=== PATIENT | female | born 1990 | race Caucasian/White ===

== ENCOUNTER → 2017-04-27 15:38 | Outpatient (CLI) | payer OTHER, SELFPAY ==
[2017-04-27 17:40] LABS: Color, Urine Yellow (Yellow); Glucose, Dipstick Normal (Normal); Ketone-Dipstick 5 mg/dl (Negative); Leukocyte Esterase-Dipstick 25 /ul (Negative); Nitrite-Dipstick Negative (Negative); Occult Blood-Urine Negative /ul (Negative); Protein-Dipstick Negative (Negative); Specific Gravity, Urine 1.015 (1.002-1.030); Urine Bilirubin Dipstick Negative (Negative); Urine Clarity Clear (Clear); Urine Urobilinogen Normal (Normal)
[2017-04-27 17:50] LABS: Absolute Lymphocyte Count 2.19 X10^3/ul (0.83-4.51); Absolute Neutrophil Count 7.8 X10^3/uL (2.0-7.7); Basophil# 0.04 X10^3/uL; Basophil% 0.4 % (0-1); Eosinophil# 0.09 X10^3/uL; Eosinophils% 0.8 % (0-5); Hematocrit 38.5 % (37-47); Hemoglobin 12.7 g/dl (12.0-15.0); Lymphocyte # 2.19 X10^3/ul (4.0); Lymphocyte % 20.4 % (19-41); Mean Corpuscular Hgb 29.8 pg (27.0-32.0); Mean Corpuscular Volume 90.4 fL (81-99); Mean Platelet Vol. 10.5 fl (6.2-12.0); Monocyte# 0.63 X10^3/uL; Monocyte% 5.9 % (0-10); Neutrophil # 7.75 X10^3/uL (2.7-7.7); Neutrophil % 72.3 % (47-70); Platelet Count 309 K/mm3 (150-450); RBC Distribution Width SD 45.7 fl (35.1-43.9); Red Blood Count 4.26 M/mm3 (4.2-5.4); White Blood Count 10.7 K/mm3 (4.4-11.0)
[2017-04-27 18:14] LABS: POSITIVE COUNT NO; POSITIVE DIFFERENTIAL NO; POSITIVE MORPHOLOGY NO
[2017-04-27 18:44] LABS: HIV - WCH Non-Reactive (Nonreactive); Rubella IgG 20.9 IU/mL; Vitamin D,25 Hydroxy 12.7 ng/mL (19.95-100.01)
[2017-04-27 18:51] LABS: Amphetamine Urine VISTA NEGATIVE (<1000 ng/mL); Barbiturate Urine VISTA NEGATIVE (< 200 ng/mL); Benzodiazepine Urine VISTA NEGATIVE (< 200 ng/mL); COTININE Drug Screen Negative (<200 ng/mL); Cocaine Urine VISTA NEGATIVE (< 300 ng/mL); Ecstacy Urine VISTA NEGATIVE (< 500 ng/mL); Methadone Urine VISTA NEGATIVE (< 300 ng/mL); PCP Urine VISTA NEGATIVE (< 25 ng/mL); THC Urine VISTA NEGATIVE (< 50 ng/mL); Vista UDS pH Range 6
[2017-04-27 19:29] LABS: Hemoglobin A1c 5.8 % (4.2-6.3)
[2017-04-29 08:02] LABS: HEPATITIS B SURFACE AG Negative (Negative); Hep C Antibodies <0.1 s/co ratio (0.0-0.9)
[2017-05-01 07:08] LABS: Prenatal RPR NONREACTIVE (NONREACTIVE)
== END ==
PROVIDERS: Visit Provider Obstetrics & Gynecology
DX: Z34.81 Encounter for supervision of other normal pregnancy, first trimester (principal)
CPT/HCPCS: 36415; 80307; 81002; 82306; 83036; 84443; 85025; 86703; 86762; 86803; 87340

== ENCOUNTER → 2017-06-01 10:05 | Outpatient (CLI) | payer OTHER, SELFPAY ==
[2017-06-01 11:27] LABS: Glucose Challenge Gest 1H 50g 201 mg/dL (70-140)
== END ==
PROVIDERS: Visit Provider Obstetrics & Gynecology
DX: Z34.82 Encounter for supervision of other normal pregnancy, second trimester (principal)
CPT/HCPCS: 36415; 82950

== ENCOUNTER 2017-06-22 09:35 | Outpatient (RCR) | payer OTHER, SELFPAY | END 2017-07-06 23:59 | LOC: DC 09:35 | PROVIDERS: Visit Provider Obstetrics & Gynecology | DX: O24.410 Gestational diabetes mellitus in pregnancy, diet controlled (principal); Z71.3 Dietary counseling and surveillance | CPT/HCPCS: 97802; 97803 ==

== ENCOUNTER 2017-08-19 08:28 | Outpatient (RCR) | payer OTHER, SELFPAY | END 2017-08-20 23:59 | LOC: DC 08:28 | PROVIDERS: Visit Provider Obstetrics & Gynecology | DX: O24.410 Gestational diabetes mellitus in pregnancy, diet controlled (principal); Z71.3 Dietary counseling and surveillance; Z3A.00 Weeks of gestation of pregnancy not specified ==

== ENCOUNTER → 2017-08-24 10:57 | Outpatient (CLI) | payer OTHER, SELFPAY ==
[2017-08-24 12:07] LABS: Hemoglobin 11.9 g/dl (12.0-15.0); Mean Corp Hgb Conc 32.2 g/gl (32-36); Mean Corpuscular Hgb 29.6 pg (27.0-32.0); Mean Platelet Vol. 10.1 fl (6.2-12.0); Platelet Count 254 K/mm3 (150-450); RBC Distribution Width SD 47.1 fl (35.1-43.9); Red Blood Count 4.02 M/mm3 (4.2-5.4); White Blood Count 7.5 K/mm3 (4.4-11.0)
[2017-08-24 12:10] LABS: Scan Indicated on CBC? Y/N NO
[2017-08-24 12:20] LABS: Vitamin D,25 Hydroxy 35.1 ng/mL (29.95-100.01)
== END ==
PROVIDERS: Visit Provider Obstetrics & Gynecology
DX: Z34.82 Encounter for supervision of other normal pregnancy, second trimester (principal); E55.9 Vitamin D deficiency, unspecified; O24.415 Gestational diabetes mellitus in pregnancy, controlled by oral hypoglycemic drugs; Z3A.00 Weeks of gestation of pregnancy not specified
CPT/HCPCS: 36415; 82306; 85027

== ENCOUNTER → 2017-10-26 14:28 | Outpatient (CLI) | payer OTHER, SELFPAY ==
[2017-10-26 17:56] LABS: Group B Strep DNA By PCR Negative (Negative); Internal Control PASS; Probe Check PASS; Specimen Processing Control PASS
== END ==
PROVIDERS: Visit Provider Obstetrics & Gynecology
DX: Z36.85 Encounter for antenatal screening for Streptococcus B (principal)
CPT/HCPCS: 87081; 87653

== ENCOUNTER 2017-11-04 11:10 | Inpatient (IN) | payer OTHER, SELFPAY ==
[2017-11-04 10:58] VITALS: BMI 34.2
[2017-11-04 11:06] LABS: ROM Internal Control Test YES-OK TO RESULT pt. (Internal QC)
[2017-11-04 11:07] LABS: ROM Patient Test POSITIVE (Negative)
[2017-11-04 13:20] LABS: Bedside Glucose 68 mg/dL (70-110)
[2017-11-04] MEDS: Lactated Ringers 1,000 ML 50 ML IV (13:30)
[2017-11-04 13:47] LABS: Hemoglobin 12.4 g/dl (12.0-15.0); Mean Corp Hgb Conc 32.6 g/gl (32-36); Mean Corpuscular Volume 91.8 fL (81-99); Mean Platelet Vol. 10.8 fl (6.2-12.0); Platelet Count 226 K/mm3 (150-450); RBC Distribution Width CV 14.7 % (11.6-14.6); RBC Distribution Width SD 48.4 fl (35.1-43.9); Red Blood Count 4.14 M/mm3 (4.2-5.4); White Blood Count 8.9 K/mm3 (4.4-11.0)
[2017-11-04 13:50] LABS: Scan Indicated on CBC? Y/N NO
[2017-11-04 15:11] LABS: Bedside Glucose 86 mg/dL (70-110)
[2017-11-04 16:51] LABS: Bedside Glucose 75 mg/dL (70-110)
[2017-11-04] MEDS: Oxytocin 30 units/NS 500 ml 30 UNITS/500 ML IV.SOLN 334 UNITS IV (17:13)
--- NOTE | 2017-11-04 17:33 | PCM.OB.VAG ---
- Problem List (1) Arrested active labor, delivered, current hospitalization Status: Acute Vaginal Delivery Maternal Presentation: Active Labor, Spontaneous Rupture of Membranes Presents at 37w6d EGA with SROM Uncomplicated . Amniotic Membrane Rupture Type: Spontaneous at home Rupture of Membrane time: 729 Amniotic Fluid Description: Clear Final DARCY: 11/19/17 Final DARCY Source: US <20 weeks Gestational age: 37 Weeks and 6 Days Date of Procedure: 11/04/17 Pre-Operative Diagnosis: Labor Post-Operative Diagnosis: Labor Surgery/ Procedure Performed: Spontaneous Vaginal Delivery Anesthesiologist: Issa Correa Type of Anesthesia: Epidural Description of Procedure: Admitted with SROM of clear fluid. Found to be 4 cm dilated. With irregular contraction pattern pitocin augmentation started at 1300. She progressed to fully dilated over the next 4 hours then pushed for less then 15 minutes to deliver a live female without complication. After delivery delayed cord clamping was employed. The mouth was suctioned with a bulb suction. The cord was clamped and cut. There was an active cry shortly after delivery. Apgars were 8/9. The placenta was delivered spontaneously intact with a centrally located 3VC. The uterus contracted well. The upper vagina, cervix were inspected and found to be intact. A small first degree posterior vaginal laceration was repaired with a figure of eight suture of 2-0 Vicryl. Presentation: Vertex Placental Delivery Description: Spontaneous Placenta Disposition: [facility] Percentage of Placenta Abruption: 0 Cord Vessel Description: 3 Vessels Nuchal Cord Compression: Without compression Cord Entanglement: None Estimated Blood Loss: 300cc Infant A gender: Female (1 minute): 8 (5 minute): 9 Episiotomy Description: None Laceration: Midline, Vaginal Extension/lac, 1st degree Medications given after delivery: IV Pitocin Complications: None
[2017-11-04] MEDS: Oxytocin 30 units/NS 500 ml 30 UNITS/500 ML IV.SOLN 167 UNITS IV (17:40)
--- NOTE | 2017-11-04 17:40 | PCM.DCVAG ---
Discharge Diet: No Restrictions Discharge Activity: Return to Normal Activity, May Drive, May Shower Return to work on:: 01/04/18 May shower in (days): 0 May resume sexual activity in: 4-6 weeks Call your doctor if your incision/area has: Sudden Increased Bleeding, Increased Pain/ Swelling, Increased Redness, Foul Smelling Discharge Call your doctor if you observe: Fever of 101 or Higher, Inability to urinate, Inability to have a bowel movement, Using more than one pad per hour, Shortness of breath, Chest pain, Calf discomfort, Uncontrolled pain Cleanse incision/area with: Soap & Water Additional Instructions: If you experience any of the following, contact your healthcare provider. Bleeding that soaks a pad every hour for 2 hours Fever 100.4 or higher Unrelieved incision or abdominal pain Swelling, redness, discharge or bleeding from your incision or episiotomy site Your incision begins to separate Problems urinating (including inability to urinate or burning while urinating). Visual changes Severe headache Flu-like symptoms Pain or redness in one of both of your breasts Pain, warmth, tenderness or swelling in your legs, especially the calf area Frequent nausea and vomiting Symptoms of depression or anxiety If you experience any of the following, call 911 or go to the nearest Emergency Room. Chest pain Problems breathing Seizure activity Partial or complete paralysis of a body part, slurred speech, weakness or drooping of the face, or a sudden inability to walk or hold your balance Allergies/Adverse Reactions: Allergies No Known Allergies Allergy (Verified 12/15/15 22:37) Medications to take at Discharge Vits [Prenatabs FA ] 1 tablet PO DAILY 12/15/15 Glyburide 5 mg PO QHS 11/04/17 Ibuprofen 600 mg PO Q6H PRN PRN #30 tab 11/04/17 Vitamin D 2,000 units PO DAILY 11/04/17 The following prescriptions were given: Ibuprofen 600 mg PO Q6H PRN PRN #30 tab PRN Reason: pain or cramping Please Follow Up With: Carina Oates MD When: 6 weeks Primary Care Physician: Care Physician,No Primary [Primary Care Provider] - Test Results: Test results from this visit will be discussed in further detail at your follow-up appointment, if applicable. Proposed Discharge Date: 11/06/17
[2017-11-04 19:35] LABS: Bedside Glucose 89 mg/dL (70-110)
[2017-11-04 20:15] VITALS: BP 118/68; PULSE 80; RESP 18; TEMP 36.6
[2017-11-05 00:41] VITALS: BP 121/56; PULSE 80; RESP 18; TEMP 37.2
[2017-11-05 05:05] LABS: Hematocrit 35.5 % (37-47); Hemoglobin 11.7 g/dl (12.0-15.0); Mean Corpuscular Hgb 30.5 pg (27.0-32.0); Mean Corpuscular Volume 92.7 fL (81-99); Mean Platelet Vol. 10.9 fl (6.2-12.0); Platelet Count 191 K/mm3 (150-450); RBC Distribution Width CV 14.7 % (11.6-14.6); RBC Distribution Width SD 48.6 fl (35.1-43.9); Red Blood Count 3.83 M/mm3 (4.2-5.4); Scan Indicated on CBC? Y/N NO; White Blood Count 8.7 K/mm3 (4.4-11.0)
--- NOTE | 2017-11-05 08:06 | PCM.PN.OB ---
Subjective: Feels well. No complaints. Breast feeding. Bleeding light Objective: Afeb VSS Hgb stable - Physical Exam General: Alert, Oriented x3, Cooperative, No apparent distress Lungs: Clear to auscultation, Normal air movement Cardiovascular: Regular rate, Regular Rhythm Abdomen: Soft, Non Tender, Non-Distended, - - Fundus firm nontender Extremities: No edema Skin: No rashes Neurological: Neuro grossly intact Psych/Mental Status: Normal Affect Comment: Lochia light Vital Signs Temp Pulse Resp BP 98.9 F 80 18 121/56 H 11/05/17 00:41 11/05/17 00:41 11/05/17 00:41 11/05/17 00:41 Oxygen Delivery Method Room Air Weight: 225 lb 6.4 oz Body Mass Index (BMI) 34.2 Intake and Output for Last 24 Hours 11/03/17 11/04/17 11/05/17 23:59 23:59 23:59 Intake Total 1307 / 1307 Output Total 1350 / 1350 Balance -43 / -43 Laboratory Tests Past 24 Hrs 11/04/17 11/04/17 11/04/17 10:35 13:30 13:30 WBC 8.9 RBC 4.14 L Hgb 12.4 Hct 38.0 MCV 91.8 MCH 30.0 MCHC 32.6 RDW 14.7 H RDW Differential 48.4 H Plt Count 226 MPV 10.8 Vag Amniotic Fld Detect POSITIVE H Blood Type O POSITIVE Antibody Screen POSITIVE H Antigen Identification E ANTIGEN - NEGATIVE Crossmatch See Detail 11/05/17 04:50 WBC 8.7 RBC 3.83 L Hgb 11.7 L Hct 35.5 L MCV 92.7 MCH 30.5 MCHC 33.0 RDW 14.7 H RDW Differential 48.6 H Plt Count 191 MPV 10.9 Vag Amniotic Fld Detect Blood Type Antibody Screen Antigen Identification Crossmatch POC Glucose 11/04/17 11/04/17 11/04/17 19:28 16:42 15:05 POC Glucose 89 75 86 11/04/17 13:12 POC Glucose 68 L Medical Necessity - Tobacco Use Smoking Status: Never smoker Assessment/Plan All Active Problems Arrested active labor, delivered, current hospitalization (Acute) Gestational diabetes mellitus (GDM) controlled on oral hypoglycemic drug (Acute) 39 weeks gestation of (Acute) Doing well on PP day#1. Continue routine PP care. Could consider 24 discharge if baby doing well.
[2017-11-05 09:26] VITALS: BP 112/64; PULSE 90; RESP 16; TEMP 36.4; O2SAT 97
[2017-11-05] MEDS: Prenatal Vits Tablet 1 TABLET PO (11:54)
[2017-11-05 11:58] VITALS: BP 100/57; PULSE 74; TEMP 36.9; O2SAT 100
[2017-11-05 15:50] VITALS: BP 100/55; PULSE 69; TEMP 36.6; O2SAT 96
[2017-11-05 22:00] VITALS: BP 111/50; PULSE 58; RESP 16; TEMP 37; O2SAT 95
[2017-11-06 02:00] VITALS: BP 116/66; PULSE 57; RESP 16; TEMP 36.7; O2SAT 97
--- NOTE | 2017-11-06 08:48 | PCM.PN.OB ---
Subjective: Doing well. No issues overnight. Objective: avss - Physical Exam General: Alert, Oriented x3 HEENT: Atraumatic, Normocephalic Lungs: Clear to auscultation, Normal air movement Cardiovascular: Regular rate, Regular Rhythm, Normal S1, Normal S2 Abdomen: Soft, Non Tender, Non-Distended, - - Fundus firm and nontender Extremities: No edema, No Calf Tenderness Neurological: Neuro grossly intact Psych/Mental Status: Normal Affect, Appropriate, Alert and oriented to time, place, person, mood and affect Vital Signs Temp Pulse Resp BP Pulse Ox 98.0 F 57 L 16 116/66 97 11/06/17 02:00 11/06/17 02:00 11/06/17 02:00 11/06/17 02:00 11/06/17 02:00 Oxygen Delivery Method Room Air Weight: 102.24 kg Body Mass Index (BMI) 34.2 Intake and Output for Last 24 Hours 11/04/17 11/05/17 11/06/17 23:59 23:59 23:59 Intake Total 1307 / 1307 Output Total 1350 / 1350 Balance -43 / -43 Medical Necessity - Tobacco Use Smoking Status: Never smoker Assessment/Plan All Active Problems Arrested active labor, delivered, current hospitalization (Acute) Gestational diabetes mellitus (GDM) controlled on oral hypoglycemic drug (Acute) 39 weeks gestation of (Acute) 27yo PPD#2 s/p doing well. - O positive, Rubella immune - -D/c home today
[2017-11-06 09:00] VITALS: BP 96/57; PULSE 73; RESP 16; TEMP 36.4; O2SAT 95
[2017-11-06] MEDS: Prenatal Vits Tablet 1 TABLET PO (12:09)
== END 2017-11-06 12:50 | disposition home or self-care (01) | DRG 775 ==
LOC: WPOUT 11:15
PROVIDERS: Admitting Provider Obstetrics & Gynecology; Visit Provider Obstetrics & Gynecology
DX: O62.1 Secondary uterine inertia (principal); O71.4 Obstetric high vaginal laceration alone; Z3A.37 37 weeks gestation of pregnancy; Z37.0 Single live birth; O24.425 Gestational diabetes mellitus in childbirth, controlled by oral hypoglycemic drugs; E55.9 Vitamin D deficiency, unspecified
CPT/HCPCS: 59050; 82962; 84112; 85027; 86850; 86900; 86902; 86905; 86920; 86922; 99218; J7120; G0378

== ENCOUNTER → 2018-03-18 14:32 | Outpatient (CLI) | payer OTHER, SELFPAY ==
[2018-03-23 09:07] LABS: HPV Reflexed? NOT INDICATED
== END ==
PROVIDERS: Visit Provider Obstetrics & Gynecology
DX: Z12.4 Encounter for screening for malignant neoplasm of cervix (principal)
CPT/HCPCS: 87624; 88175; G0145

== ENCOUNTER → 2018-04-05 09:58 | Outpatient (CLI) | payer OTHER, SELFPAY ==
[2018-04-05 11:34] LABS: Glucose 75GTT - 30 minutes 161 mg/dL (100-160)
[2018-04-05 11:35] LABS: Hemoglobin A1c 5.2 % (4.2-6.3)
[2018-04-05 11:35] LABS: Glucose 75GTT - Fasting 98 mg/dL (70-99)
[2018-04-05 11:46] LABS: Insulin 75GTT - 30 MIN 23.3 mU/L (Not Estab.)
[2018-04-05 12:38] LABS: Glucose 75GTT - 60 minutes 187 mg/dL (100-160)
[2018-04-05 13:14] LABS: Glucose 75GTT - 120 minutes 159 mg/dL (70-140)
[2018-04-05 13:30] LABS: Insulin 75GTT - 120 min 45.8 mU/L (Not Estab.)
== END ==
PROVIDERS: Referring Provider Obstetrics & Gynecology; Visit Provider Obstetrics & Gynecology
DX: Z86.32 Personal history of gestational diabetes (principal)
CPT/HCPCS: 36415; 82951; 82952; 83036; 83525

== ENCOUNTER → 2018-11-01 | Outpatient (CLI) | payer OTHER, SELFPAY ==
[2018-10-28 09:35] VITALS: BMI 34.2
[2018-11-01 11:02] LABS: Cholesterol 190 mg/dL (200); Glucose 99 mg/dL (74-106); High Density Lipoprotein 53 mg/dL; Prolactin 8.7 ng/mL; Thyroid Stim Hormone (TSH) 2.69 uIU/mL (0.358-3.74); Triglycerides 79 mg/dL; Very Low Density Lipoprotein 16 mg/dL (5-40)
== END | disposition home or self-care (01) ==
LOC: PAVLAB 10:05
PROVIDERS: Nurse Practitioner Women's Health; Referring Provider Obstetrics & Gynecology; Visit Provider Obstetrics & Gynecology
DX: Z00.00 Encounter for general adult medical examination without abnormal findings (principal); N64.3 Galactorrhea not associated with childbirth
CPT/HCPCS: 36415; 80061; 82947; 84146; 84443

== ENCOUNTER → 2019-04-05 | Outpatient (CLI) | payer OTHER, SELFPAY ==
[2019-04-05 11:56] VITALS: BMI 34.2
[2019-04-05 15:20] LABS: Amphetamine Urine VISTA NEGATIVE (<1000 ng/mL); Barbiturate Urine VISTA NEGATIVE (< 200 ng/mL); Benzodiazepine Urine VISTA NEGATIVE (< 200 ng/mL); Cocaine Urine VISTA NEGATIVE (< 300 ng/mL); Ecstacy Urine VISTA NEGATIVE (< 500 ng/mL); Methadone Urine VISTA NEGATIVE (< 300 ng/mL); PCP Urine VISTA NEGATIVE (< 25 ng/mL); THC Urine VISTA NEGATIVE (< 50 ng/mL); Vista UDS pH Range 6
[2019-04-05 17:13] LABS: Chlamydia Trachomatis by PCR Negative (Negative); Neisserai gonorrhoeae by PCR Negative (Negative); Probe Check PASS; Sample Adequacy Control PASS; Specimen Processing Control PASS
[2019-04-08 13:38] LABS: HPV Reflexed? NOT INDICATED
== END | disposition home or self-care (01) ==
LOC: LABSPEC 13:28
PROVIDERS: Referring Provider Obstetrics & Gynecology; Visit Provider Obstetrics & Gynecology
DX: Z34.90 Encounter for supervision of normal pregnancy, unspecified, unspecified trimester (principal); Z12.4 Encounter for screening for malignant neoplasm of cervix
CPT/HCPCS: 80307; 87086; 87088; 87491; 87591; 88175; G0145

== ENCOUNTER → 2019-04-18 10:35 | Outpatient (CLI) | payer OTHER, SELFPAY ==
[2019-04-05 11:56] VITALS: BMI 34.2
[2019-04-18 11:35] LABS: Absolute Lymphocyte Count 1.71 X10^3/uL (0.83-4.51); Absolute Neutrophil Count 5.3 X10^3/uL (2.0-7.7); Basophil# 0.02 X10^3/uL; Basophil% 0.3 % (0-1); Eosinophil# 0.02 X10^3/uL; Eosinophils% 0.3 % (0-5); Hematocrit 39.8 % (37-47); Hemoglobin 13.4 g/dL (12.0-15.0); Lymphocyte # 1.71 X10^3/ul (4.0); Lymphocyte % 23.1 % (19-41); Mean Corp Hgb Conc 33.7 g/dL (32-36); Mean Corpuscular Hgb 30.2 pg (27.0-32.0); Mean Corpuscular Volume 89.8 fL (81-99); Mean Platelet Vol. 10.7 fl (6.2-12.0); Monocyte# 0.38 X10^3/uL; Monocyte% 5.1 % (0-10); NRBC Flagged by Analyzer 0 % (0-5); Neutrophil # 5.26 X10^3/uL (2.7-7.7); Neutrophil % 70.9 % (47-70); Platelet Count 245 K/mm3 (150-450); RBC Distribution Width CV 12.5 % (11.6-14.6); RBC Distribution Width SD 41.1 fl (35.1-43.9); Red Blood Count 4.43 M/mm3 (4.2-5.4); White Blood Count 7.4 K/mm3 (4.4-11.0)
[2019-04-18 11:55] LABS: Glucose 384 mg/dL (74-106); Glucose Challenge Gest 1H 50g 384 mg/dL (70-140)
[2019-04-18 12:52] LABS: HIV - WCH Non-Reactive (Nonreactive); Hepatitis B Surface Antigen Non-Reactive (Nonreactive); Hepatitis C Antibody Non-Reactive (Nonreactive); Rubella IgG 17.8 IU/mL
[2019-04-21 02:39] LABS: Rapid Plasmin Reagin (RPR) NONREACTIVE (NONREACTIVE)
== END ==
PROVIDERS: Referring Provider Obstetrics & Gynecology; Visit Provider Obstetrics & Gynecology
DX: O09.299 Supervision of pregnancy with other poor reproductive or obstetric history, unspecified trimester (principal); Z86.32 Personal history of gestational diabetes; Z3A.00 Weeks of gestation of pregnancy not specified
CPT/HCPCS: 36415; 82947; 82950; 85025; 86592; 86703; 86762; 86803; 86850; 86900; 86901; 87340

== ENCOUNTER → 2019-04-26 10:25 | Outpatient (CLI) | payer OTHER, SELFPAY ==
[2019-04-19 16:10] VITALS: BMI 34.2
[2019-04-26 11:13] LABS: Protein, Urine (Random) 9.5 mg/dL (<11.9); Protein:Creat Ratio 137 mg/g CRE (0-200)
[2019-04-26 11:20] LABS: Hemoglobin A1c 8.8 % (4.2-6.3)
[2019-04-26 11:31] LABS: AST(SGOT) 10 U/L (15-37); Alanine Aminotransfer ALT/SGPT 16 U/L (13-56); Albumin, Serum 3.3 g/dL (3.2-5.0); Alkaline Phosphatase 59 U/L (45-117); Anion Gap 6 (5-15); BUN 8 mg/dL (7-18); BUN/Creat Ratio 16.5 RATIO (10-20); Calcium,Total 9.2 mg/dL (8.5-10.1); Chloride 106 mmol/L (98-107); Creatinine, Serum 0.49 mg/dL (0.55-1.02); EST Glomerular Filtration Rate 161 mL/min (>60); Est Glom Filt Rate - Afr Amer 195 mL/min (>60); Globulin 3.3 g/dL (2.2-4.2); Glucose 90 mg/dL (74-106); Potassium 4.1 mmol/L (3.5-5.1); Protein, Total 6.6 g/dL (6.4-8.2); Sodium Level 139 mmol/L (136-145); T4 Free Direct 1.19 ng/dL (0.76-1.46); Thyroid Stim Hormone (TSH) 1.86 uIU/mL (0.358-3.74)
== END ==
PROVIDERS: Referring Provider Obstetrics & Gynecology; Visit Provider Obstetrics & Gynecology
DX: O09.299 Supervision of pregnancy with other poor reproductive or obstetric history, unspecified trimester (principal); Z86.32 Personal history of gestational diabetes; Z83.49 Family history of other endocrine, nutritional and metabolic diseases; Z3A.00 Weeks of gestation of pregnancy not specified
CPT/HCPCS: 36415; 80053; 82570; 83036; 84156; 84439; 84443

== ENCOUNTER → 2019-08-22 07:51 | Outpatient (CLI) | payer OTHER, SELFPAY ==
[2019-07-25 08:59] VITALS: BMI 34.2
--- NOTE | 2019-08-22 07:51 | US_ITS ---
STUDY: SECOND AND THIRD TRIMESTER OBSTETRICAL ULTRASOUND REASON FOR EXAM: Female, 29 years old growth LMP: February 06, 2019. TECHNIQUE: Transabdominal TECHNICAL QUALITY: Adequate. PRIOR ULTRASOUND: None. FINDINGS: There is a single intrauterine fetus. The fetus is in an transverse lie with the head on the maternal left side. There is demonstrated cardiac activity with a heart rate of 147 bpm. There is a normal amniotic fluid volume. The largest amniotic fluid pocket measures 4.9 cm x 4.1 cm. The amniotic fluid index (DESI) is within normal limits. The placenta is fundal and posterior in location. There are Grade 1 placental changes. The cervix measures 5.5 cm in length. The bilateral adnexal regions are normal. BIOMETRY: BPD: 6.8 cm: 27 weeks, 3 days HC: 26.1 cm: 28 weeks, 3 days AC: 23.5 cm: 27 weeks, 6 days FL: 5.3 cm: 28 weeks, 0 days CI: 78% FL/BPD: 77% FL/HC: FL/AC: 22% HC/AC: 1.11 age by current US: 27 weeks, 4 days. DARCY by current US: November 17, 2019. Estimated weight: 1157 grams, +/- 171 grams, 32 %. Age by LMP: 28 weeks, 1 days. DARCY by LMP: November 13, 2019. US/OB Limited With Biometrics IMPRESSION: Single live intrauterine gestation with a mean gestational age of 27 weeks and 4 days. Electronically Signed: Orlando Solis, at 8:57 EDT , Service support ,
[2019-08-22 09:51] LABS: Absolute Lymphocyte Count 1.21 X10^3/uL (0.83-4.51); Absolute Neutrophil Count 4.5 X10^3/uL (2.0-7.7); Basophil# 0.03 X10^3/uL; Basophil% 0.5 % (0-1); Eosinophil# 0.01 X10^3/uL; Eosinophils% 0.2 % (0-5); Hematocrit 37.7 % (37-47); Hemoglobin 12.4 g/dL (12.0-15.0); Lymphocyte # 1.21 X10^3/ul (4.0); Lymphocyte % 19.6 % (19-41); Mean Corp Hgb Conc 32.9 g/dL (32-36); Mean Corpuscular Hgb 31.6 pg (27.0-32.0); Mean Corpuscular Volume 96.2 fL (81-99); Mean Platelet Vol. 10.2 fl (6.2-12.0); Monocyte# 0.45 X10^3/uL; Monocyte% 7.3 % (0-10); NRBC Flagged by Analyzer 0 % (0-5); Neutrophil # 4.45 X10^3/uL (2.7-7.7); Neutrophil % 72.2 % (47-70); Platelet Count 220 K/mm3 (150-450); RBC Distribution Width CV 13.4 % (11.6-14.6); RBC Distribution Width SD 47.4 fl (35.1-43.9); Red Blood Count 3.92 M/mm3 (4.2-5.4); White Blood Count 6.2 K/mm3 (4.4-11.0)
== END ==
PROVIDERS: Referring Provider Obstetrics & Gynecology; Visit Provider Obstetrics & Gynecology
DX: O24.414 Gestational diabetes mellitus in pregnancy, insulin controlled (principal); O09.90 Supervision of high risk pregnancy, unspecified, unspecified trimester; Z3A.27 27 weeks gestation of pregnancy
CPT/HCPCS: 36415; 76816; 85025

== ENCOUNTER → 2019-09-19 07:53 | Outpatient (CLI) | payer OTHER, SELFPAY ==
[2019-07-25 08:59] VITALS: BMI 34.2
[2019-09-05 09:07] VITALS: BMI 34.2
--- NOTE | 2019-09-19 08:04 | US_ITS ---
STUDY: SECOND AND THIRD TRIMESTER OBSTETRICAL ULTRASOUND - LIMITED REASON FOR EXAM: Female, 29 years old DESI LMP: February 06, 2019. PRIOR ULTRASOUND: Comparison is made with prior study dated August 22, 2019. TECHNIQUE: Transabdominal TECHNICAL QUALITY: Adequate. FINDINGS: There is a single intrauterine fetus. The fetus is in a cephalic presentation. There is demonstrated cardiac activity with a heart rate of 141 bpm. There is a normal amniotic fluid volume. The largest amniotic fluid pocket measures 5.0 cm. The amniotic fluid index (DESI) is 14.4 cm. The placenta is fundal and posterior in location. There are Grade 1 placental changes. The cervix measures 4.6 cm in length. BIOMETRY: Age by LMP: 32 weeks, 1 days. DARCY by LMP: November 13, 2019. US/OB Limited (No Biometrics) IMPRESSION: Normal amniotic fluid. Electronically Signed: Orlando Solis, at 12:15 EDT , Service support ,
== END ==
PROVIDERS: Referring Provider Obstetrics & Gynecology; Visit Provider Obstetrics & Gynecology
DX: O24.414 Gestational diabetes mellitus in pregnancy, insulin controlled (principal); Z3A.00 Weeks of gestation of pregnancy not specified
CPT/HCPCS: 76815

== ENCOUNTER → 2019-09-26 08:53 | Outpatient (CLI) | payer OTHER, SELFPAY ==
[2019-07-25 08:59] VITALS: BMI 34.2
[2019-09-22 09:39] VITALS: BMI 34.2
--- NOTE | 2019-09-26 08:53 | US_ITS ---
STUDY: SECOND AND THIRD TRIMESTER OBSTETRICAL ULTRASOUND-Limited REASON FOR EXAM: Female, 29 years old growth LMP: 02/06/2019 TECHNIQUE: Transabdominal TECHNICAL QUALITY: Adequate. PRIOR ULTRASOUND : 09/19/2019 FINDINGS: There is a single intrauterine fetus. The fetus is in a breech presentation. There is demonstrated cardiac activity with a heart rate of 153 bpm. There is a normal amniotic fluid volume. The largest amniotic fluid pocket measures 4.1 cm. The amniotic fluid index (DESI) is 13.5 cm. The placenta is posterior and fundal in location and is not low lying. There are Grade 1 placental changes. The cervix measures 4.0 cm in length. The adnexal regions are not visualized. BIOMETRY: BPD: 8.3 cm: 33 weeks, 1 days HC: 31.0 cm: 34 weeks, 4 days AC: 29.1 cm: 33 weeks, 0 days FL: 6.4 cm: 33 weeks, 0 days age by current US: 33 weeks, 3 days. DARCY by current US: 11/11/2019. Estimated weight: 2150 grams, +/- 318 grams, 44 %. age by prior US: 32 weeks, 4 days. DARCY by prior US: 11/17/2019. Age by LMP: 33 weeks, 1 days. DARCY by LMP: 11/13/2019. US/OB Limited With Biometrics IMPRESSION: Single live intrauterine at 33 weeks, 3 days by current ultrasound with DRACY of 11/11/2019. Heart rate of 153 bpm. No suspicious sonographic findings, however, presentation of the fetus on this current study is breech Electronically Signed: Parminder Clark MD at 8:38 EDT , Service support ,
== END ==
PROVIDERS: Referring Provider Obstetrics & Gynecology; Visit Provider Obstetrics & Gynecology
DX: O24.319 Unspecified pre-existing diabetes mellitus in pregnancy, unspecified trimester (principal); Z3A.00 Weeks of gestation of pregnancy not specified
CPT/HCPCS: 76816

== ENCOUNTER → 2019-10-03 07:52 | Outpatient (CLI) | payer OTHER, SELFPAY ==
[2019-07-25 08:59] VITALS: BMI 34.2
[2019-09-29 09:48] VITALS: BMI 34.2
--- NOTE | 2019-10-03 08:03 | US_ITS ---
STUDY: SECOND AND THIRD TRIMESTER OBSTETRICAL ULTRASOUND - LIMITED REASON FOR EXAM: Female, 29 years old desi LMP: 02-06-19. PRIOR ULTRASOUND: 09-26-19. TECHNIQUE: Transabdominal TECHNICAL QUALITY: Adequate. FINDINGS: There is a single intrauterine fetus. The fetus is in a cephalic presentation. There is demonstrated cardiac activity with a heart rate of 144 bpm. There is a normal amniotic fluid volume. The largest amniotic fluid pocket measures 3.6 cm. The amniotic fluid index (DESI) is 10.9 cm. The placenta is fundal in location. There are Grade 1 placental changes. The cervix measures 4.7 cm in length. US/OB Limited (No Biometrics) IMPRESSION: Normal amniotic fluid. Electronically Signed: Orlando Solis, at 14:47 EDT , Service support ,
== END ==
PROVIDERS: Referring Provider Obstetrics & Gynecology; Visit Provider Obstetrics & Gynecology
DX: O09.90 Supervision of high risk pregnancy, unspecified, unspecified trimester (principal); O24.319 Unspecified pre-existing diabetes mellitus in pregnancy, unspecified trimester; Z3A.00 Weeks of gestation of pregnancy not specified
CPT/HCPCS: 76815

== ENCOUNTER → 2019-10-10 08:51 | Outpatient (CLI) | payer OTHER, SELFPAY ==
[2019-07-25 08:59] VITALS: BMI 34.2
[2019-10-09 07:00] VITALS: BMI 34.2
--- NOTE | 2019-10-10 08:52 | US_ITS ---
STUDY: SECOND AND THIRD TRIMESTER OBSTETRICAL ULTRASOUND - LIMITED REASON FOR EXAM: Female, 29 years old DESI LMP: 02/06/2019. PRIOR ULTRASOUND: Comparison is made with prior examination dated 10/03/2019. TECHNIQUE: Transabdominal TECHNICAL QUALITY: Adequate. FINDINGS: There is a single intrauterine fetus. The fetus is in a cephalic presentation. There is demonstrated cardiac activity with a heart rate of 147 bpm. There is a normal amniotic fluid volume. The largest amniotic fluid pocket measures 3.7 cm. The amniotic fluid index (DESI) is 11.0 cm. The placenta is posterior and fundal in location and is not low lying. There are Grade 1 placental changes. The cervix measures 4.8 cm in length. BIOMETRY: Age by LMP: 35 weeks, 1 days. DARCY by LMP: 11/13/2019. US/OB Limited (No Biometrics) IMPRESSION: Normal amniotic fluid index. Electronically Signed: Orlando Solis, at 11:09 EDT , Service support ,
== END ==
PROVIDERS: Referring Provider Obstetrics & Gynecology; Visit Provider Obstetrics & Gynecology
DX: O09.90 Supervision of high risk pregnancy, unspecified, unspecified trimester (principal); Z3A.00 Weeks of gestation of pregnancy not specified
CPT/HCPCS: 76815

== ENCOUNTER → 2019-10-17 07:55 | Outpatient (CLI) | payer OTHER, SELFPAY ==
[2019-07-25 08:59] VITALS: BMI 34.2
[2019-10-13 11:42] VITALS: BMI 34.2
--- NOTE | 2019-10-17 07:56 | US_ITS ---
STUDY: SECOND AND THIRD TRIMESTER OBSTETRICAL ULTRASOUND REASON FOR EXAM: Female, 29 years old growth LMP: 02/06/2019. TECHNIQUE: Transabdominal TECHNICAL QUALITY: Adequate. PRIOR ULTRASOUND: Comparison is made with prior examination dated 10/10/2019. FINDINGS: There is a single intrauterine fetus. The fetus is in a cephalic presentation. There is demonstrated cardiac activity with a heart rate of 144 bpm. There is a normal amniotic fluid volume. The largest amniotic fluid pocket measures 4.1 cm. The amniotic fluid index (DESI) is 12.5 cm. The placenta is fundal in location. There are Grade 1 placental changes. The cervix measures 4.8 cm in length. The bilateral adnexal regions are normal. BIOMETRY: BPD: 8.9 cm: 35 weeks, 5 days HC: 32.3 cm: 36 weeks, 3 days AC: 32.5 cm: 36 weeks, 2 days FL: 7.2 cm: 36 weeks, 4 days CI: 8.6% FL/BPD: 81% FL/HC: FL/AC: 22.1% HC/AC: 0.99 age by current US: 36 weeks, 0 days. DARCY by current US: 11/14/2019. Estimated weight: 2930 grams, +/- 434 grams, 59 %. age by prior US: 35 weeks, 4 days. DARCY by prior US: 11/17/2019. Age by LMP: 36 weeks, 1 days. DARCY by LMP: 11/13/2019. US/OB Limited With Biometrics IMPRESSION: Single live intrauterine gestation with a mean gestational age of 35 weeks and 4 days. The measurements obtained today fall within the normal expected range. Electronically Signed: Orlando Solis, at 9:40 EDT , Service support ,
== END ==
PROVIDERS: Referring Provider Obstetrics & Gynecology; Visit Provider Obstetrics & Gynecology
DX: O09.93 Supervision of high risk pregnancy, unspecified, third trimester (principal); Z3A.00 Weeks of gestation of pregnancy not specified
CPT/HCPCS: 76816; 87081

== ENCOUNTER → 2019-10-24 08:02 | Outpatient (CLI) | payer OTHER, SELFPAY ==
[2019-07-25 08:59] VITALS: BMI 34.2
[2019-10-20 09:06] VITALS: BMI 34.2
--- NOTE | 2019-10-24 08:03 | US_ITS ---
STUDY: SECOND AND THIRD TRIMESTER OBSTETRICAL ULTRASOUND - LIMITED REASON FOR EXAM: Female, 29 years old weekly DESI. LMP: 02/06/2019. PRIOR ULTRASOUND: 08/22/2019, 09/19/2019, 09/26/2019, 10/03/2019, 10/10/2019 and 10/17/2019 . TECHNIQUE: Transabdominal TECHNICAL QUALITY: Adequate. FINDINGS: There is a single intrauterine fetus. The fetus is in a cephalic presentation. There is demonstrated cardiac activity with a heart rate of 120 bpm. There is a normal amniotic fluid volume. The largest amniotic fluid pocket measures 4.89 cm. The amniotic fluid index (DESI) is 10.1 by cm. The placenta is fundal in location. There are Grade 1 placental changes. The cervix was not visualized BIOMETRY: Biometrics were not performed on the current study. Age by LMP: 37 weeks, 1 days. DARCY by LMP: 11/13/2019. age by initial US: 36 weeks, 4 days. DARCY by initial US: 11/17/2019. age by most recent US: 37 weeks, 0 days. DARCY by most recent US: 11/14/2019. An incidental finding is a presence of a nuchal cord, not previously described. US/OB Limited (No Biometrics) IMPRESSION: 1. Live single intrauterine . 2. DESI of 10.15 cm. 3. Fundal grade 1 placenta. 4. VERTEX presentation. 5. A nuchal cord was noted on the current exam. Electronically Signed: Eleazar Schofield DO at 16:03 EDT Tel [phone], Service support ,
== END ==
PROVIDERS: Referring Provider Obstetrics & Gynecology; Visit Provider Obstetrics & Gynecology
DX: O24.319 Unspecified pre-existing diabetes mellitus in pregnancy, unspecified trimester (principal); Z3A.00 Weeks of gestation of pregnancy not specified
CPT/HCPCS: 76815

== ENCOUNTER 2019-10-26 13:35 | Inpatient (IN) | payer OTHER, SELFPAY ==
[2019-10-17 09:25] VITALS: BMI 34.2
[2019-10-26] VITALS (53 sets, daily range): BP systolic 72–162; BP diastolic 33–109; PULSE 60–180; TEMP 36.3–37.3; O2SAT 83–100; BMI 34.2; BMI 27.8
[2019-10-26] MEDS: Lactated Ringers 1,000 ML 50 ML IV (14:00)
[2019-10-26 14:31] LABS: Absolute Lymphocyte Count 1.21 X10^3/uL (0.83-4.51); Absolute Neutrophil Count 5.8 X10^3/uL (2.0-7.7); Basophil# 0.01 X10^3/uL; Basophil% 0.1 % (0-1); Eosinophil# 0.13 X10^3/uL; Eosinophils% 1.7 % (0-5); Hematocrit 38.8 % (37-47); Hemoglobin 12.6 g/dL (12.0-15.0); Lymphocyte # 1.21 X10^3/ul (4.0); Lymphocyte % 16.1 % (19-41); Mean Corp Hgb Conc 32.5 g/dL (32-36); Mean Corpuscular Hgb 30.9 pg (27.0-32.0); Mean Corpuscular Volume 95.1 fL (81-99); Mean Platelet Vol. 10.3 fl (6.2-12.0); Monocyte% 5.3 % (0-10); NRBC Flagged by Analyzer 0 % (0-5); Neutrophil # 5.75 X10^3/uL (2.7-7.7); Neutrophil % 76.7 % (47-70); POSITIVE MORPHOLOGY YES; Platelet Count 231 K/mm3 (150-450); RBC Distribution Width CV 13.9 % (11.6-14.6); Red Blood Count 4.08 M/mm3 (4.2-5.4); White Blood Count 7.5 K/mm3 (4.4-11.0)
[2019-10-26 14:35] LABS: Differential Indicated SCAN CRITERIA MET
[2019-10-26 14:40] LABS: Bedside Glucose 71 mg/dL (70-110)
[2019-10-26 15:06] LABS: Platelet Estimate ADEQUATE (ADEQ); Red Cell Morphology NORM C+C NORMAL (NORM C&C)
[2019-10-26 15:26] LABS: Bedside Glucose 93 mg/dL (70-110)
[2019-10-26 16:35] LABS: Bedside Glucose 67 mg/dL (70-110)
[2019-10-26] MEDS: Oxytocin 30 units/NS 500 ml 30 UNITS/500 ML IV.SOLN IV (17:21)
--- NOTE | 2019-10-26 17:22 | NURSING ---
Patient Blood sugar with own glucometer-[id number]
--- NOTE | 2019-10-26 18:31 | NURSING ---
Patient blood sugar taken with own glucometer-[id number]
[2019-10-26] MEDS: Lactated Ringers 500 ML 999 ML IV ×2 (18:33→20:39)
--- NOTE | 2019-10-26 19:10 | NURSING ---
patient blood sugar taken with own glucometer-61
[2019-10-26] MEDS: fentaNYL-bupivacaine (epidural) 100 ML BAG EPIDURAL (19:57)
[2019-10-26] MEDS: Oxytocin 30 units/NS 500 ml 30 UNITS/500 ML IV.SOLN 334 UNITS IV (21:17)
--- NOTE | 2019-10-26 21:26 | PCM.HPOB.BLA ---
- Problem List (1) History of abnormal cervical Pap smear Status: Acute Comment: Pap done at [facility] nl (2) Modified White class B pregestational diabetes mellitus Status: Acute Comment: diagnosed 1 TM, Managed per Dr. Sidhu on insuline; s/p optho cs. Nl baseline labs. plan Growth US q4w after 32 wk, twice weekly NSTs, deliver at 39 (3) Status: Acute Qualifiers: Comment: declined genetic, carrier and NTD screening. nl anatomy. (4) Supervision of high risk , antepartum Status: Acute Comment: PRR DARCY 11/13/19 girl Carmel DEBORAH Aldo Ybarra Spouse: Jorge A History and Physical Date of Admission: 10/26/19 Intake Vital Signs 10/26/19 BMI 34.2 10/26/19 Height 5 ft 8 in 10/26/19 Weight: 183 lb 10/26/19 BMI 27.8 10/26/19 BP 112/70 Intake Visit Reasons: ROM Video Surveillance Technician Required: No Is patient in pain?: No Allergies No Known Allergies Allergy (Verified 10/26/19 12:37) Medications Vits [Prenatabs FA ] 1 tab PO DAILY 12/15/15 [History Confirmed 10/26/19] flash glucose sensor See Rx Instructions .ROUTE .MEDSUPPLY #2 ea 04/19/19 [Rx Confirmed 10/26/19] pen needle, diabetic 32 gauge x 32 See Rx Instructions .ROUTE .MEDSUPPLY #100 ea 04/19/19 [Rx Confirmed 10/26/19] insulin aspart U-100 100 unit/mL (3 mL) subcutaneous pen 10 unit SC TID #15 ml 08/09/19 [Rx Confirmed 10/26/19] insulin detemir U-100 100 unit/mL (3 mL) subcutaneous pen 40 unit SC QHS #45 ml 09/16/19 [Rx Confirmed 10/26/19] Last Menstral Period: 10/20/18 Zika: Zika virus screening: Negative : No PFSH PFSH Medical History Abnormal Pap smear of cervix (Acute) Surgical History S/P wisdom tooth extraction (Resolved) Status post colposcopy (Resolved) Family History Grandmother Diabetes Sister Diabetes mellitus type 1 Social History (Updated 10/26/19 @ 13:[address] Marleny Gonzales MD) Smoking Status: Never smoker second hand exposure: No alcohol intake: never substance use type: does not use caffeine: Yes what type of physical activity do you participate in: walking frequency: 3-4 times per week seatbelt use: always do you feel safe at home: Yes additional social history: -Jorge A- [facility] Patient is stay at home mom Pregancy History 3 Elective abortions Hx Para 2 Spontaneous abortions Hx # Term Pregnancies Ectopic pregnancies Hx # Pregnancies Multiple births # of living children Past Pregnancies Del. Date Name GA/Weeks Outcome Route Bth Weight Gen Labor Lgth Anesthesia Del Locatn Provider FOB 12/17/15 [place] 39 live - full term 8lbs 3oz Male 17 hours epidural [facility] Dr. Jelly Jules 11/04/17 Ald[place] 38 live - full term 8lbs 5oz Female 6 hours epidural [facility] Dr. Yfn Jules Delivery Date: 12/17/15 On 10/28/18 @ 09:02 [place] Gestational diabetes. Induced due to diabetes Delivery Date: 11/04/17 On 10/28/18 @ 09:03 [place] Gestational diabetes HPI ROM: Details: KADE SAMUELS is a 29 year old at 38 weeks presents in active labor. She is 4 cm dilated with clear SROM. She has had a complicated by insulin-dependent diabetes since the first trimester and has been following with endocrine and has had reassuring testing. OB Visit DARCY Calculator Estimated Delivery Date Method Current WG Current Estimate 11/13/19 LMP (Certain) 37w 3d Expected Delivery Route/Plan Labor Preferences- CB/BF classes: NA labor support person: Jorge A labor intervention preferences: plans to try for natural labor, but open to epidural (epidural with last 2) cut cord/dad catch: Yes : Yes PP control planned: vasectomy special requests: none Specific Issue/Plans flu vaccine: given tdap vaccine: given rhogam: na LARC form signed: declined movement and labor precautions reviewed. Problem list reviewed and updated with the most current plan of care details and appropriate orders placed. Relevant counseling for the gestational age provided. Continue routine care and follow up unless otherwise noted in visit notes/problem list details Initial Weight: 177 lb Date EGA Weight BP Urine Prot Glucose FHR FuHt Pres Dilation Effaced St Visit Note 04/05/19 8w 2d 177 lb (+0 oz) 05/02/19 12w 1d 176 lb 4 oz (-12 oz) 133/85 Negative Negative 160 Brief US to confirm active IUP with FHT. NO Vb, LOF. Seeing Dr. Sidhu and glucose doing well. 05/30/19 16w 1d 175 lb (-2 lb) 98/54 Negative Negative 155 SM- no vb cramping SM- no vb cramping, BS well controlled 07/25/19 24w 1d 181 lb 4 oz (+4 lb 4 oz) 110/72 140 25 SM- no vb BS well controlled, sees endocrine. 08/22/19 28w 1d 181 lb (+4 lb) 98/56 Negative Negative 145 28 Transverse Sm- no vb lof good fm no regular ctx, cbc today tdap. discussed blood sugar expectations 09/05/19 30w 1d 182 lb (+5 lb) 120/70 Negative Negative 140 30 SM-discussed delivery preferences and blood sugar management. no vb lof good fm no regular ctx. 09/19/19 32w 1d 184 lb 4 oz (+7 lb 4 oz) 104/60 140 SM-- bs well controlled, dr sidhu recommends no meds after delivery 09/22/19 32w 4d 184 lb (+7 lb) 110/70 Negative Negative 150 NST only-reactive 09/29/19 33w 4d 184 lb (+7 lb) 100/72 Negative Negative MH-NST only reactive 10/03/19 34w 1d 184 lb (+7 lb) 100/60 Negative Negative 10/10/19 35w 1d 186 lb (+9 lb) Negative Negative 140 SM- NST done, nic today, BS being followed by endocrine and controlled. 10/17/19 36w 1d 186 lb 2 oz (+9 lb 2 oz) 100/60 Negative Negative 135 MH-No vb, lof. BS well controlled. Reactive NST. GBS collected 10/20/19 36w 4d 184 lb (+7 lb) 104/72 Negative Negative 140 MH NST only reactive 10/24/19 37w 1d 186 lb (+9 lb) 110/60 Negative Negative 130 37 Cephalic 3 60 -2 GP - no LOF/VB/DFM. No regular contractions. GP - no LOF/VB/DFM. No regular contractions. GBS negative. 10/26/19 37w 3d 183 lb (+6 lb) 112/70 Negative Negative 4 40 60 -2 GP - Small gushes of fluid at home. Starting to feel more contractions. NO DFM/VB. ROM+ sent. GP - Small gushes of fluid at home. Starting to feel more contractions. NO DFM/VB. ROM plus positive. Diagnostics Diagnostics Details: HIV: Urine Culture: Sequential Screen: NIPT Screen: Office Procedures OB NST Non-Stress Test Indications for Monitoring: Yes other (contractions) Heart Rate Baseline: 140 Heart Rate Variability: moderate Movement: Present Heart Rate Accelerations: Present Decelerations: Absent Contractions: Present (q5 min) Impression: Yes Reactive Non-Stress Test ROS Const Reports system reviewed and no additional complaints, except as documented Card Reports system reviewed and no additional complaints, except as documented Resp Reports system reviewed and no additional complaints, except as documented GI Reports system reviewed and no additional complaints, except as documented, Reports nausea Reports system reviewed and no additional complaints, except as documented Musc Reports system reviewed and no additional complaints, except as documented all other systems reviewed and negative Exam Const General: cooperative, healthy appearing, comfortable HENWY Head: normal to inspection Nose: external nose normal Face and sinus: normal facial exam Neck Neck: normal visual inspection, full ROM, no lymphadenopathy Thyroid: thyroid normal Chest Chest palpation & inspection: normal inspection of the chest Resp Effort & Inspection: normal respiratory effort GI Inspection: normal to inspection Palpation: soft, other (gravid uterus) Other: vertex and appropriate size for gestational age Other: Cervical Exam: /-1 posterior Extrem General: pedal edema Results POC Urinalysis 2 Dip (Clinic) Office Urine Glucose Negative Last Edit by Olena Roach on 10/26/19 12:41 Office Urine Protein Negative Last Edit by Olena Roach on 10/26/19 12:41 Assessment & Plan Problems 1. History of abnormal cervical Pap smear Z87.42 2. Supervision of high risk , antepartum O09.90 3. 37 weeks gestation of Z3A.37 4. Modified White class B pregestational diabetes mellitus O24.319 Patient presents [IAL, plan expectant management for , pitocin/AROM PRN if needed]. Pain management: [plans epidural]. GBS negative. Management of any complications: Diabetes?check blood sugars per protocol I have reviewed the [facility] and made any clinically relevant updates. Orders Orders: POC Urinalysis 2 Dip (Clinic) Today OB NST Today O09.90, O24.319, Z3A.37 Coding Level of Care Code OB Routine Diagnoses History of abnormal cervical Pap smear Z87.42 Supervision of high risk , antepartum O09.90 37 weeks gestation of Z3A.37 ??Weeks of gestation: 37 weeks Modified White class B pregestational diabetes mellitus O24.319 Additional Codes Non-Stress Test (33840)
--- NOTE | 2019-10-26 21:29 | PCM.OPRPT ---
Problem List (1) History of abnormal cervical Pap smear Status: Acute Comment: Pap done at [facility] nl (2) Modified White class B pregestational diabetes mellitus Status: Acute Comment: diagnosed 1 TM, Managed per Dr. Sidhu on insuline; s/p optho cs. Nl baseline labs. plan Growth US q4w after 32 wk, twice weekly NSTs, deliver at 39 (3) Status: Acute Qualifiers: Comment: declined genetic, carrier and NTD screening. nl anatomy. (4) Supervision of high risk , antepartum Status: Acute Comment: PRR DARCY 11/13/19 girl Carmel DEBORAH YbarraAldo Spouse: Jorge A Vaginal Delivery Maternal Presentation: Active Labor, Spontaneous Rupture of Membranes 1 9-year-old G3, P2 at 38 weeks presents in active labor with spontaneous rupture membranes Medical Reason for Induction: Maternal Medical Condition: list: - Diabetes diagnosed in the first trimester insulin controlled Amniotic Membrane Rupture Type: Spontaneous at home Amniotic Fluid Description: Clear Final DARCY: 11/06/19 Gestational age: 38 Weeks and 3 Days Date of Procedure: 10/26/19 Pre-Operative Diagnosis: ial Post-Operative Diagnosis: same Surgery/ Procedure Performed: Spontaneous Vaginal Delivery Type of Anesthesia: Epidural Description of Procedure: Patient began pushing and delivered the head in the BAO presentation. The head was delivered atraumatically and a loose nuchal cord ?1 was identified and easily reduced over the infant's head. The anterior and posterior shoulders delivered without complication followed by the rest of the infant and the was placed on the maternal abdomen. Delayed cord clamping was employed for approximately 60 seconds. Cord was clamped and cut and gentle traction was applied to the cord and the placenta delivered spontaneously immediately following it was noted to be intact with three-vessel cord. The perineum and vagina were inspected and noted to have no laceration. EBL was 100 cc. Patient and tolerated delivery well. Presentation: BAO Placental Delivery Description: Spontaneous Placenta Disposition: [facility] Cord Vessel Description: 3 Vessels Cord Entanglement: Around neck x 1, loose Episiotomy Description: None Laceration: None Medications given after delivery: IV Pitocin Complications: None Multi Select Codes - Urinary/Genital Urinary/Genital CPT Codes: 36471 Vaginal Delivery [facility]
--- NOTE | 2019-10-26 21:33 | DCINST_ITS ---
Discharge Diet: No Restrictions Discharge Activity: Return to Normal Activity, May not drive while taking narcotic pain medications., May Shower May resume sexual activity in: 4-6 weeks Call your doctor if your incision/area has: Continuous Slow Oozing, Sudden Increased Bleeding, Increased Pain/ Swelling, Increased Redness, Foul Smelling Discharge Additional Instructions: If you experience any of the following, contact your healthcare provider. * Bleeding that soaks a pad every hour for 2 hours * Fever 100.4 or higher * Unrelieved incision or abdominal pain * Swelling, redness, discharge or bleeding from your incision or episiotomy site * Your incision begins to separate * Problems urinating (including inability to urinate or burning while urinating). * Visual changes * Severe headache * Flu-like symptoms * Pain or redness in one of both of your breasts * Pain, warmth, tenderness or swelling in your legs, especially the calf area * Frequent nausea and vomiting * Symptoms of depression or anxiety If you experience any of the following, call 911 or go to the nearest Emergency Room. * Chest pain * Problems breathing * Seizure activity * Partial or complete paralysis of a body part, slurred speech, weakness or drooping of the face, or a sudden inability to walk or hold your balance Allergies/Adverse Reactions: Allergies No Known Allergies Allergy (Verified 10/26/19 12:37) Medications to take at Discharge Vits [Prenatabs FA ] 1 tab PO DAILY 12/15/15 flash glucose sensor See Rx Instructions .ROUTE .MEDSUPPLY #2 ea 04/19/19 Insulin Aspart [Insulin Aspart Flexpen] See Protocol SUBCUT TID 10/26/19 Insulin Detemir [Levemir FlexTouch U-100 Insuln] 10 unit SUBCUT QHS 10/26/19 Pen Needle, Diabetic [Unifine Pentips] See Rx Instructions .ROUTE .MEDSUPPLY 10/26/19 Please Follow Up With: Kelsy Kaye MD - [phone] When: Call to make an appointment with your doctor in 6 weeks. If you had elevated Blood pressure or 4th degree laceration you will need to be seen in 2 weeks. Primary Care Physician: Care Physician,No Primary [Primary Care Provider] - Test Results: Test results from this visit will be discussed in further detail at your follow- up appointment, if applicable.
[2019-10-27] VITALS (7 sets, daily range): BP systolic 88–109; BP diastolic 53–66; PULSE 59–75; RESP 16–18; TEMP 36.3–36.5
--- NOTE | 2019-10-27 07:24 | NURSING ---
10/27/19 0700 BGT fasting per Pt's intradermal home device 73.
[2019-10-28 04:39] VITALS: BP 103/64; PULSE 66; RESP 16; TEMP 36.6
--- NOTE | 2019-10-28 07:08 | PCM.PN.OB ---
Subjective: Patient doing well without complaints. Tolerating PO. Ambulating and voiding without difficulty. Passing gas. Feeding without difficulty. Denies chest pain, shortness of breath, calf pain/swelling, fevers, chills, lightheadedness. - Physical Exam Vitals/I&O's: Vital Signs Temp Pulse Resp BP Pulse Ox 97.9 F 66 16 103/64 99 10/28/19 04:39 10/28/19 04:39 10/28/19 04:39 10/28/19 04:39 10/26/19 19:55 Oxygen Delivery Method Room Air Weight: 183 lb 6.793 oz Body Mass Index (BMI) 27.8 Intake and Output for Last 24 Hours 10/26/19 10/27/19 10/28/19 23:59 23:59 23:59 Intake Total 5.26 / 2064.26 Output Total 1200 / 1200 Balance 2064. / 2064.26 -1200 / -1200 General: Alert, Oriented x3, Cooperative Current Medications Acetaminophen (Tylenol) 1,000 mg PO Q8H PRN PRN PRN Reason: Pain Score 1-3/10 Bisacodyl (Dulcolax) 10 mg RECTAL UD PRN PRN Reason: If no BM Dextrose (D50w Syringe) 0 gm IV X1 PRN; Protocol PRN Reason: Hypoglycemia Dibucaine (Dibucaine) 1 applic TOPICAL TID PRN PRN; Protocol PRN Reason: Discomfort Ephedrine Sulfate () 10 mg IV Q10M PRN PRN Reason: hypotension Ephedrine Sulfate () 10 mg IM Q30M PRN PRN Reason: hypotension Glucagon () 1 mg IM .X1 PRN PRN Reason: Hypoglycemia Hydrocortisone (Hytone) 1 applic TOPICAL TID PRN PRN; Protocol PRN Reason: Discomfort Naloxone HCl 4 mg/ Dextrose 504 mls @ 0 mls/hr IV .Q0M PRN; Protocol PRN Reason: To maintain Resp. rate >10 Methylergonovine Maleate (Methergine) 0.2 mg IM X1 PRN PRN Reason: Excess bleeding/uterine atony Nalbuphine HCl (Nubain) 5 mg IV Q3H PRN PRN PRN Reason: ITCHING Naloxone HCl (Narcan) 0.02 mg IV Q1M PRN PRN Reason: RR< 10 AND PT UNRESPONSIVE Naproxen (Naprosyn) 500 mg PO Q8H PRN PRN PRN Reason: Pain Score 1-3/10 Ondansetron HCl (Zofran) 4 mg IV Q4H PRN PRN PRN Reason: Nausea Oxycodone HCl (Oxyir) 5 - 10 mg PO Q4H PRN PRN PRN Reason: Pain Score 4-10/10 Senna/Docusate Sodium (Senokot-S, Graciela-Colace) 1 - 2 tablet PO DAILY PRN PRN PRN Reason: Constipation Simethicone (Mylicon) 80 mg PO PCHS PRN PRN Reason: Indigestion/Stomach pain Sodium Chloride () 5 - 15 ml IV UD PRN PRN Reason: SALINE FLUSH Medical Necessity - Tobacco Use Smoking Status: Never smoker Assessment/Plan All Active Problems (Last Reviewed 10/26/19 @ 12:40 by Olena Roach) Modified White class B pregestational diabetes mellitus (Acute) (Acute) Supervision of high risk , antepartum (Acute) History of abnormal cervical Pap smear (Acute) Exposure to influenza (Resolved) s/p PPD # 2 1. routine post delivery care 2. breast feeding- support given 3. rh positive 4. rubella immune check BS and fu with endocrine
[2019-10-28 07:14] VITALS: BP 99/59; PULSE 58
[2019-10-28 07:20] VITALS: BP 97/59; PULSE 58; RESP 16; TEMP 36.6; O2SAT 96
[2019-10-28 10:00] VITALS: BP 99/59; PULSE 58; RESP 16; TEMP 36.6; O2SAT 96
== END 2019-10-28 10:35 | disposition home or self-care (01) | DRG 807 ==
PROVIDERS: Admitting Provider Obstetrics & Gynecology; Visit Provider Obstetrics & Gynecology
DX: O24.32 Unspecified pre-existing diabetes mellitus in childbirth (principal); E11.9 Type 2 diabetes mellitus without complications; O76 Abnormality in fetal heart rate and rhythm complicating labor and delivery; O69.81X0 Labor and delivery complicated by cord around neck, without compression, not applicable or unspecified; Z79.4 Long term (current) use of insulin; Z3A.38 38 weeks gestation of pregnancy; Z37.0 Single live birth
CPT/HCPCS: 59025; 59050; 82962; 85025; 86850; 86900; 86901; 99218; J7120; G0378

== ENCOUNTER → 2019-10-26 | Outpatient (CLI) | payer OTHER, SELFPAY ==
[2019-10-26 12:40] VITALS: BMI 34.2
[2019-10-26 13:26] LABS: ROM Internal Control Test YES-OK TO RESULT pt. (Internal QC); ROM Patient Test POSITIVE (Negative)
== END | disposition home or self-care (01) ==
LOC: LABSPEC 12:48
PROVIDERS: Visit Provider Obstetrics & Gynecology
DX: O09.90 Supervision of high risk pregnancy, unspecified, unspecified trimester (principal); Z3A.00 Weeks of gestation of pregnancy not specified
CPT/HCPCS: 84112

== ENCOUNTER 2019-12-06 21:56 | Emergency (ER) | payer OTHER, SELFPAY ==
[2019-10-26 13:58] VITALS: BMI 27.8
[2019-12-06 21:57] VITALS: BP 140/78; PULSE 94; RESP 16; TEMP 36.3; O2SAT 100; BMI 26.7
--- NOTE | 2019-12-06 22:25 | ED.VIS.GEN ---
History of Present Illness Chief Complaint: Edema Informant: Patient Onset: Days Context: Gradual Onset Timing: Intermittent Current Severity: Moderate Maximum Severity: Moderate Narrative: The patient is a 29-year-old female with no significant medical history who is recently that presents to the emergency department with sore throat. She states that sometimes, she will feel like she will have difficulty swallowing. She states that it is mostly just with her saliva. If she tries to eat or drink, and seems to make the symptoms better. Today, that she began to have with felt like shortness of breath. She felt like her throat was closing. She denies fevers or chills. She denies any nausea or vomiting. She denies any chest pain. She denies any trauma. She states that she felt like her mouth was swollen. Prior similar symptoms: No Recent Illness/Hospitalization: No Past Medical History - Allergies and Home Meds Allergies/Adverse Reactions: Allergies No Known Allergies Allergy (Verified 12/06/19 21:59) Primary Care Physician: Care Physician,No Primary [Primary Care Provider] - Prior records reviewed: Yes Past Medical History: None Surgical History: no surgical history Smoking Status: Never smoker Review of Systems General: Denies: Chills, Fever, Sweats Eyes: Denies: Visual changes - bilaterally, Diplopia ENT: Reports: Sore throat. Denies: Rhinorrhea Cardiovascular: Denies: Chest pain, Palpitations Respiratory: Denies: Dyspnea, Cough, Dyspnea on exertion Gastrointestinal: Denies: Abdominal pain, Nausea, Vomiting, Diarrhea, Melena, Hematochezia Genitourinary: Denies: Dysuria, Hematuria, Frequency Musculoskeletal: Denies: Back pain, Extremity Pain Skin: Denies: Rash, Wounds Neurological: Denies: Headache, Weakness, Numbness Physical Exam Vital Signs/Narrative: Vital Signs Temp Pulse Resp BP Pulse Ox 12/06/19 21:57 97.3 F L 94 16 140/78 H 100 Inital Vital Signs reviewed: Yes General: Well nourished, Well developed, No Acute Distress Head: Normocephalic, Atraumatic Eyes: Perrl, EOMI ENT: Moist mucous membranes, No rhinorrhea, - - Oropharynx is widely patent. There is mild edema of the uvula. There is scant exudate on bilateral tonsils. No evidence of abscess. Neck: Supple, Nontender Cardiovascular: Regular rate, Regular rhythm, No murmurs Respiratory: No distress, CTA bilaterally, Chest nontender Abdomen: Soft, Nontender, Nondistended, Normal bowel sounds Back: Nontender, Normal Inspection Extremities: Nontender, No edema Skin: Normal color, No rash Neurological: Alert, Oriented x3, Cranial nerves II-XII grossly intact, Normal Strength, Normal Sensation Psychological: Normal affect, Normal Mood Diagnostic/Tx/Re-eval - Medical Decision Making The patient is some mild swelling of the uvula, but it is midline. There is scant exudate on the right lateral tonsil. There is no evidence of significant tonsillitis. She has no trismus or stridor. There is no fullness of the retropharyngeal space. Given her symptoms, I did obtain lateral soft tissue neck. This was negative. Rapid strep was also negative. My suspicion is this is likely viral causing uvulitis. I will treat the patient with a short burst of Decadron. She has no signs or symptoms of airway obstruction. At this point, I do feel that she is safe for outpatient therapy. Impression 1. Uvulitis ED Disposition - Plan for ED Patient: Instructions: ED Pharyngitis Viral Prescriptions: Dexamethasone [Decadron] 4 mg PO BIDCM #6 tab Prescription Printed Referrals: Care Physician,No Primary [Primary Care Provider] -
[2019-12-06] MEDS: dexAMETHasone 10 MG/ML Vial PO.IVFORM (22:26)
--- NOTE | 2019-12-06 22:33 | RAD_ITS ---
STUDY: X-RAY - SOFT TISSUE NECK REASON FOR EXAM: Female, 29 years old. PAINFUL SWALLOWING, FEELS LIKE THROAT IS SWOLLEN TECHNIQUE: 2 view(s) of the neck were obtained. COMPARISON: None. FINDINGS: Normal visualized nasopharynx, oropharynx, hypopharynx. Normal epiglottis. Normal visualized subglottic tracheal air column. Normal prevertebral soft tissue structures. Normal visualized osseous structures. The soft tissue structures are unremarkable. RAD/Neck for Soft Tissue IMPRESSION: Normal x-ray soft tissue neck. Electronically Signed: Josiah Guajardo MD at 22:41 EDT , Service support ,
== END 2019-12-06 23:33 | disposition home or self-care (01) ==
LOC: ED 22:20
PROVIDERS: Emergency Provider Emergency Medicine
DX: K12.2 Cellulitis and abscess of mouth (principal)
CPT/HCPCS: 70360; 87880; 99283

== ENCOUNTER → 2019-12-29 16:11 | Outpatient (CLI) | payer OTHER, SELFPAY ==
[2019-12-19 11:27] VITALS: BMI 26.7
[2019-12-29 16:54] LABS: Free T3 2.4 pg/mL (2.18-3.98); T4 Free Direct 1.28 ng/dL (0.76-1.46); Thyroid Stim Hormone (TSH) 1.75 uIU/mL (0.358-3.74)
[2020-01-02 10:33] LABS: Thyroid Peroxidase AB < 9 IU/mL (0-34)
== END ==
PROVIDERS: Referring Provider Internal Medicine Endocrinology, Diabetes & Metabolism; Visit Provider Internal Medicine Endocrinology, Diabetes & Metabolism
DX: E04.9 Nontoxic goiter, unspecified (principal)
CPT/HCPCS: 36415; 84439; 84443; 84481; 86376

== ENCOUNTER → 2020-01-05 10:55 | Outpatient (CLI) | payer OTHER, SELFPAY ==
[2019-12-19 11:27] VITALS: BMI 26.7
[2020-01-08 03:06] LABS: Beef <0.10 kU/L (Class 0); Chicken <0.10 kU/L (Class 0); Clam <0.10 kU/L (Class 0); Codfish <0.10 kU/L (Class 0); Corn <0.10 kU/L (Class 0); Egg, White <0.10 kU/L (Class 0); Garlic <0.10 kU/L (Class 0); Gluten <0.10 kU/L (Class 0); Milk (Cow) <0.10 kU/L (Class 0); Oat <0.10 kU/L (Class 0); Peanut <0.10 kU/L (Class 0); Pork <0.10 kU/L (Class 0); Potato, White <0.10 kU/L (Class 0); SCALLOP <0.10 kU/L (Class 0); SESAME SEED <0.10 kU/L (Class 0); Shrimp <0.10 kU/L (Class 0); Soybean <0.10 kU/L (Class 0); Tomato <0.10 kU/L (Class 0); Walnut, (Food) <0.10 kU/L (Class 0); Wheat <0.10 kU/L (Class 0); Yeast <0.10 kU/L (Class 0)
[2020-01-08 11:17] LABS: Onion <0.10 kU/L (Class 0)
== END ==
PROVIDERS: Referring Provider Otolaryngology Otolaryngology/Facial Plastic Surgery; Visit Provider Otolaryngology Otolaryngology/Facial Plastic Surgery
DX: T78.40XA Allergy, unspecified, initial encounter (principal)
CPT/HCPCS: 36415; 86003

== ENCOUNTER 2020-08-05 21:05 | Emergency (ER) | payer OTHER, SELFPAY ==
[2020-04-30 08:07] VITALS: BMI 23.8
[2020-08-05 21:06] VITALS: BP 150/64; PULSE 100; RESP 18; TEMP 36.1; O2SAT 99; BMI 23.0
--- NOTE | 2020-08-05 21:39 | RAD_ITS ---
HISTORY: back pain COMPARISON: None FINDINGS: # of images incl. paperwork: 2 XR Spine Thoracic 2 Views: Thoracic vertebral bodies are normal in height. No acute thoracic spine fracture or subluxation. No significant degenerative change. RAD/Thoracic Spine 2 Views IMPRESSION: No acute thoracic spine fracture or subluxation. at 2222 Reported and signed by: Yoel Gonzalez MD Electronically Signed: Yoel Gonzalez MD at 22:21 EDT Tel , Service support ,
--- NOTE | 2020-08-05 21:40 | EDS_ITS ---
HPI History of Present Illness Chief Complaint: Fall Narrative Narrative: 30-year-old female with no significant medical history presenting for back pain. She states that she fell on the stairs after missing a step and hit her back and then slid down the stairs. She denies head injury or LOC. She complains of pain in the mid back from the mid thoracic region to the lower back. She states it hurts when she twists her trunk and when she walks. She denies paresthesias. He sustained no lacerations or abrasions. [facility] Medical History (Updated 08/05/20 @ 22:[address] John Gonzales DO) Abnormal Pap smear of cervix Home Medications hydrocodone-acetaminophen 1 tab PO Q6H PRN PRN 3 Days #12 tablet 08/05/20 [Rx Last Taken Unknown] Allergy/AdvReac Type Severity Reaction Status Date / Time No Known Allergies Allergy Verified 08/05/20 21:08 Family History Grandmother Diabetes Sister Diabetes mellitus type 1 Surgical History S/P wisdom tooth extraction Status post colposcopy Social History Smoking Status: Never smoker second hand exposure: No alcohol intake: never substance use type: does not use caffeine: Yes what type of physical activity do you participate in: walking frequency: 3-4 times per week seatbelt use: always do you feel safe at home: Yes additional social history: -[facility] Patient is stay at home [facility] ED Constitutional Constitutional ED: Denies chills, fever(s) or sweats Eyes Eyes: Denies blurry vision or change in vision ENT ENT ED: Denies ear pain, rhinorrhea or sore throat Cardiovascular Cardiovascular: Denies chest pain, palpitations or racing heartbeat Respiratory/Chest Respiratory/Chest: Denies cough, dyspnea or sputum Gastrointestinal Gastrointestinal: Denies abdominal pain, constipation, diarrhea or vomiting Genitourinary Genitourinary ED: Denies dysuria, hematuria or urinary frequency Musculoskeletal Musculoskeletal: Reports back pain; Denies arthralgias, myalgias or neck pain Integumentary Denies abscess, Abrasions or rash Neurologic Neurologic: Denies headache(s), paresthesias or weakness Psychiatric Psychiatric: Denies anxiety, depression, suicidal ideation or suicidal thoughts Endocrine Endocrinology: Denies polydipsia or polyuria EXAM Physical Exam Const Vital Signs: 08/05/20 21:06 08/05/20 21:13 Temperature 97.0 F L Temperature Source Temporal Pulse Rate 100 Respiratory Rate 18 Respiratory Effort Normal Blood Pressure 150/64 H Blood Pressure Mean 92 Pulse Ox 99 Oxygen Delivery Method Room Air Positive well nourished and well developed General Appearance ED: well developed HEENT atraumatic Eyes EOMs intact bilaterally Neck full ROM General: tenderness Resp normal respiratory effort Cardio regular rhythm Rate: regular rate Back/Spine Thoracic Spine / Upper Back: thoracic spinal tenderness Lumbar Spine / Lower Back: lumbar spinal tenderness Extremity normal to inspection and full ROM Psych mental status grossly normal and thought process normal Skin no rashes or lesions noted and no wounds MDM MDM MDM Narrative Medical decision making narrative: Patient presents with back pain from the thoracic spine down to her lumbar spine. She was given oxycodone for her pain. She had x-rays of the thoracic and lumbar spine which is interpreted by myself shows no fractures or subluxations. Disc heights appear to be maintained. Radiologist does agree. Patient will be given instructions to ice. She was given a prescription for [place] for the pain but after this she will alternate Tylenol and ibuprofen. She is to follow-up with her primary care provider to ensure resolution. Impression: 1. Mechanical fall 2. Thoracic contusion 3. Lumbar contusion Radiography Diagnostic Testing: Radiology Impression Thoracic Spine X-Ray 08/05/20 21:39 IMPRESSION: No acute thoracic spine fracture or subluxation. at 2222 Reported and signed by: Yoel Gonzaelz MD Electronically Signed: Yoel Gonzalez MD at 22:21 EDT Tel , Service support , Lumbar Spine X-Ray 08/05/20 21:45 IMPRESSION: No acute lumbar spine fracture or subluxation. at 2221 Reported and signed by: Yoel Gonzalez MD Electronically Signed: Yoel Gonzalez MD at 22:20 EDT Tel , Service support , Discharge Plan Triage Chief Complaint: Fall ED Provider: John Gonzales Dx/Rx/DC Orders Instructions: ED Back Contusion Prescriptions: New hydrocodone-acetaminophen 5-325 mg tablet 1 tab PO Q6H PRN PRN (Reason: Pain) 3 Days Qty: 12 RF: 0 Primary Care Provider: Care Physician,No Primary Referrals: Junior Webster MD [NON-STAFF] - As Needed Care Physician,No Primary [Primary Care Provider] - Disposition Disposition: Home, self care
--- NOTE | 2020-08-05 21:45 | RAD_ITS ---
HISTORY: back pain COMPARISON: None FINDINGS: # of images incl. paperwork: 3 XR Spine Lumbar 2 or 3 Views: Lumbar vertebral bodies are normal in height. Lumbar disc spaces are well maintained. No acute lumbar spine fracture or subluxation. No significant degenerative change. RAD/Lumbar Spine 2 or 3 Views IMPRESSION: No acute lumbar spine fracture or subluxation. at 2221 Reported and signed by: Yoel Gonzalez MD Electronically Signed: Yoel Gonzalez MD at 22:20 EDT Tel , Service support ,
[2020-08-05] MEDS: HYDROcodone Bitartrate/Apap 5/325 Tablet PO (21:55)
== END 2020-08-05 22:45 | disposition home or self-care (01) ==
PROVIDERS: Emergency Provider Student in an Organized Health Care Education/Training Program
DX: S20.224A Contusion of middle back wall of thorax, initial encounter (principal); S30.0XXA Contusion of lower back and pelvis, initial encounter; W10.9XXA Fall (on) (from) unspecified stairs and steps, initial encounter; Y93.9 Activity, unspecified; Y92.9 Unspecified place or not applicable
CPT/HCPCS: 72070; 72100; 99283

== ENCOUNTER → 2020-10-17 15:22 | Outpatient (CLI) | payer OTHER, SELFPAY ==
--- NOTE | 2020-10-17 15:27 | MRI_ITS ---
STUDY: MRI BRAIN WITH AND WITHOUT CONTRAST REASON FOR EXAM: Female, 30 years old. HEADACHE, EYE PAIN; attn orbits TECHNIQUE: Standardized multiplanar fat and water weighted pulse sequences were obtained. 13 ml IV Dotarem was administered for the contrast portion of the examination. COMPARISON: None. FINDINGS: Normal size of the ventricles and extra-axial spaces for the patient''s age. Normal white matter tracts of the supratentorial brain. There is no evidence for recent intracranial ischemia or other cause of cytotoxic edema on diffusion weighted imaging (DWI). Normal T2* images of the brain without demonstrated susceptibility artifact. There is no demonstrated hemosiderin stain. Normal bilateral basal ganglia. Normal thalami. There is no extra-axial fluid accumulation. Normal flow voids within the major intracranial circulation suggesting patency by spin echo criteria. Normal venous enhancement. There is no enhancing intra-axial or extra-axial abnormality. Normal sella turcica, pituitary gland, infundibular stalk, optic chiasm and hypothalamus. Normal tectal plate and pineal gland. Normal midbrain, dorene and medulla. Normal cerebellum. Normal basal cisterns. Normal bilateral temporal bones. Normal bilateral internal auditory canals. No demonstrated orbital abnormality, within the constraints of a routine brain study. Normal visualized paranasal sinuses. Normal calvarium and skull base. Normal visualized soft tissue structures. Normal visualized upper cervical spine. MRI/Brain W/WO Contrast IMPRESSION: Normal unenhanced and enhanced MRI of the brain. Electronically Signed: Bakari Hurt MD at 17:02 EDT Tel , Service support ,
== END ==
PROVIDERS: PCP Family Medicine; Referring Provider Ophthalmology; Visit Provider Ophthalmology
DX: R51.9 Headache, unspecified (principal); H57.10 Ocular pain, unspecified eye
CPT/HCPCS: 70553; A9575

== ENCOUNTER → 2021-01-28 09:02 | Outpatient (CLI) | payer OTHER, SELFPAY ==
[2021-01-28 12:15] LABS: Hemoglobin A1c 11.3 % (3.8-5.6)
[2021-01-28 12:22] LABS: AST(SGOT) 8 U/L (15-37); Alanine Aminotransfer ALT/SGPT 17 U/L (13-56); Albumin, Serum 3.7 g/dL (3.2-5.0); Alkaline Phosphatase 92 U/L (45-117); Anion Gap 18 (5-15); BUN 7 mg/dL (7-18); BUN/Creat Ratio 10.8 RATIO (10-20); Calcium,Total 8.4 mg/dL (8.5-10.1); Chloride 102 mmol/L (98-107); Creatinine, Serum 0.65 mg/dL (0.55-1.02); EST Glomerular Filtration Rate 115 mL/min (>60); Est Glom Filt Rate - Afr Amer 139 mL/min (>60); Globulin 3.8 g/dL (2.2-4.2); Glucose 279 mg/dL (74-106); Potassium 3.6 mmol/L (3.5-5.1); Protein, Total 7.5 g/dL (6.4-8.2); Sodium Level 137 mmol/L (136-145); Thyroid Stim Hormone (TSH) 2.55 uIU/mL (0.358-3.74)
== END ==
PROVIDERS: PCP Family Medicine; Referring Provider Internal Medicine Endocrinology, Diabetes & Metabolism; Visit Provider Internal Medicine Endocrinology, Diabetes & Metabolism
DX: R73.9 Hyperglycemia, unspecified (principal)
CPT/HCPCS: 36415; 80053; 83036; 84443

== ENCOUNTER → 2022-01-03 | Outpatient (CLI) | payer OTHER, SELFPAY ==
[2022-01-03 12:26] LABS: Absolute Lymphocyte Count 1.21 X10^3/uL (0.83-4.51); Absolute Neutrophil Count 4.4 X10^3/uL (2.0-7.7); Basophil# 0.04 X10^3/uL; Basophil% 0.7 % (0-1); Eosinophil# 0.02 X10^3/uL; Eosinophils% 0.3 % (0-5); Hemoglobin 13.3 g/dL (12.0-15.0); Lymphocyte # 1.21 X10^3/ul (0.83-4.51); Lymphocyte % 20.2 % (19-41); Mean Corp Hgb Conc 34.1 g/dL (32-36); Mean Corpuscular Hgb 31.7 pg (27.0-32.0); Mean Corpuscular Volume 92.9 fL (81-99); Mean Platelet Vol. 10.2 fl (6.2-12.0); Monocyte# 0.27 X10^3/uL; Monocyte% 4.5 % (0-10); NRBC Flagged by Analyzer 0 % (0-5); Neutrophil # 4.44 X10^3/uL (2.7-7.7); Neutrophil % 74.1 % (47-70); Platelet Count 236 K/mm3 (150-450); RBC Distribution Width CV 13.2 % (11.6-14.6); RBC Distribution Width SD 45.3 fl (35.1-43.9)
[2022-01-03 13:02] LABS: Vitamin D,25 Hydroxy 33.9 ng/mL
[2022-01-03 13:03] LABS: Prolactin 7.3 ng/mL
[2022-01-03 13:09] LABS: ALB/GLOB Ratio 1.1 RATIO (0.9-2.4); AST(SGOT) 13 U/L (15-37); Alanine Aminotransfer ALT/SGPT 17 U/L (13-56); Albumin, Serum 3.7 g/dL (3.2-5.0); Alkaline Phosphatase 53 U/L (45-117); Anion Gap 4 (5-15); BUN 10 mg/dL (7-18); BUN/Creat Ratio 15.5 RATIO (10-20); Calcium,Total 8.8 mg/dL (8.5-10.1); Chloride 106 mmol/L (98-107); Cholesterol 165 mg/dL (200); Creatinine, Serum 0.64 mg/dL (0.55-1.02); EST Glomerular Filtration Rate 114 mL/min (>60); Est Glom Filt Rate - Afr Amer 138 mL/min (>60); Globulin 3.4 g/dL (2.2-4.2); Glucose 110 mg/dL (74-106); High Density Lipoprotein 68 mg/dL; Potassium 4.2 mmol/L (3.5-5.1); Protein, Total 7.1 g/dL (6.4-8.2); Sodium Level 138 mmol/L (136-145); Thyroid Stim Hormone (TSH) 1.61 uIU/mL (0.358-3.74); Triglycerides 43 mg/dL; Very Low Density Lipoprotein 9 mg/dL (5-40)
[2022-01-03 13:17] LABS: Microalbumin,Random Urine < 5.0 mg/L (NO RANGE EST.)
== END | disposition home or self-care (01) ==
LOC: LAB 11:39
PROVIDERS: Internal Medicine Endocrinology, Diabetes & Metabolism; PCP Family Medicine; Referring Provider Obstetrics & Gynecology; Visit Provider Obstetrics & Gynecology
DX: E11.9 Type 2 diabetes mellitus without complications (principal); N64.3 Galactorrhea not associated with childbirth; E55.9 Vitamin D deficiency, unspecified
CPT/HCPCS: 36415; 80053; 80061; 82043; 82306; 82570; 84146; 84443; 85025

== ENCOUNTER → 2022-01-13 | Outpatient (CLI) | payer OTHER, SELFPAY ==
--- NOTE | 2022-01-13 09:29 | BI_ITS ---
MAMMOGRAPHY - BILATERAL DIAGNOSTIC REASON FOR EXAM: Female, 31 years old. Bilateral intermittent milky discharge. The patient stopped nursing in 18 months ago. PERTINENT HISTORY: Non-contributory. TECHNIQUE: Digital bilateral breast shelley (3D mammographic acquisition) in the CC and MLO projections. 2-D mediolateral oblique (MLO) and craniocaudad (CC) views of both breasts were obtained. CAD: Full Field Digital Mammography with Computer Added Detection was performed. COMPARISON: None. Baseline examination. FINDINGS: Breast Composition: The breasts are extremely dense, which lowers the sensitivity of mammography. There are no dominant masses or suspicious calcifications. Small benign-appearing bilateral axillary lymph nodes. No other significant abnormalities are identified. BI/DIAG MAMM W/CAD, BILAT IMPRESSION: Negative diagnostic mammogram. With the patient''s history of bilateral nipple discharge, correlation with ultrasound is recommended. ASSESSMENT CATEGORY: BIRADS Category 0: Incomplete. Need additional imaging evaluation. A letter regarding these results will be sent to the patient by the facility within 30 days. Approximately 10% of breast cancers are not detected by mammography. A normal mammogram should not delay biopsy of a clinically suspicious abnormality. Electronically Signed: Orlando Solis MD at 10:23 EST ,
--- NOTE | 2022-01-13 09:29 | US_ITS ---
STUDY: ULTRASOUND BREAST - RIGHT REASON FOR EXAM: Female, 31 years old. Nipple discharge in the right breast. TECHNIQUE: Axial and longitudinal images of the RIGHT breast were performed with a high resolution ultrasound transducer. # OF IMAGES: 28 COMPARISON: Comparison is made with prior mammogram done earlier today. FINDINGS: RIGHT Breast: The retroareolar region was examined with ultrasound. No sonographic abnormality is seen. IMPRESSION: No sonographic abnormality is seen. ASSESSMENT CATEGORY: BIRADS Category 1: Negative. A letter regarding these results will be sent to the patient by the facility within 30 days. Electronically Signed: Orlando Solis MD at 14:45 EST , STUDY: ULTRASOUND BREAST - LEFT REASON FOR EXAM: Female, 31 years old. Nipple discharge in the left breast. TECHNIQUE: Axial and longitudinal images of the LEFT breast were performed with a high resolution ultrasound transducer. # OF IMAGES: 28 COMPARISON: Comparison is made with prior mammogram done earlier today. FINDINGS: LEFT Breast: The retroareolar region was examined with ultrasound. No sonographic abnormality is seen. US/Breast Limited Unilateral IMPRESSION: No sonographic abnormality is seen ASSESSMENT CATEGORY: BIRADS Category 1: Negative. A letter regarding these results will be sent to the patient by the facility within 30 days. Electronically Signed: Orlando Solis MD at 14:46 EST ,
== END | disposition home or self-care (01) ==
LOC: OPBI 09:27
PROVIDERS: PCP Family Medicine; Visit Provider Obstetrics & Gynecology
DX: N64.52 Nipple discharge (principal); N64.3 Galactorrhea not associated with childbirth
CPT/HCPCS: 76642; 77062; 77066; G0279

== ENCOUNTER → 2023-01-23 | Outpatient (CLI) | payer OTHER, SELFPAY ==
[2023-01-23 10:07] LABS: Absolute Lymphocyte Count 0.85 X10^3/uL (0.83-4.51); Absolute Neutrophil Count 3.8 X10^3/uL (2.0-7.7); Basophil# 0.03 X10^3/uL; Basophil% 0.6 % (0-1); Eosinophil# 0.01 X10^3/uL; Eosinophils% 0.2 % (0-5); Hematocrit 42.4 % (37-47); Hemoglobin 13.5 g/dL (12.0-15.0); Lymphocyte # 0.85 X10^3/ul (0.83-4.51); Lymphocyte % 17.4 % (19-41); Mean Corp Hgb Conc 31.8 g/dL (32-36); Mean Corpuscular Hgb 29.5 pg (27.0-32.0); Mean Corpuscular Volume 92.8 fL (81-99); Mean Platelet Vol. 10.3 fl (6.2-12.0); Monocyte# 0.22 X10^3/uL; Monocyte% 4.5 % (0-10); NRBC Flagged by Analyzer 0 % (0-5); Neutrophil # 3.76 X10^3/uL (2.7-7.7); Neutrophil % 77.1 % (47-70); Platelet Count 224 K/mm3 (150-450); RBC Distribution Width CV 13.2 % (11.6-14.6); RBC Distribution Width SD 45.1 fl (35.1-43.9); Red Blood Count 4.57 M/mm3 (4.2-5.4); White Blood Count 4.9 K/mm3 (4.4-11.0)
[2023-01-23 10:28] LABS: Vitamin D,25 Hydroxy 42.3 ng/mL
[2023-01-23 10:36] LABS: ALB/GLOB Ratio 1.2 RATIO (0.9-2.4); AST(SGOT) 11 U/L (15-37); Alanine Aminotransfer ALT/SGPT 21 U/L (13-56); Albumin, Serum 3.9 g/dL (3.2-5.0); Alkaline Phosphatase 54 U/L (45-117); Anion Gap 7 (5-15); BUN 16 mg/dL (7-18); BUN/Creat Ratio 21.8 RATIO (10-20); Calcium,Total 8.7 mg/dL (8.5-10.1); Chloride 107 mmol/L (98-107); Cholesterol 205 mg/dL (200); Creatinine, Serum 0.74 mg/dL (0.55-1.02); EST Glomerular Filtration Rate 98 mL/min (>60); Est Glom Filt Rate - Afr Amer 118 mL/min (>60); Globulin 3.2 g/dL (2.2-4.2); Glucose 229 mg/dL (74-106); High Density Lipoprotein 70 mg/dL; Potassium 4.1 mmol/L (3.5-5.1); Prolactin 5.5 ng/mL; Protein, Total 7.1 g/dL (6.4-8.2); Sodium Level 137 mmol/L (136-145); Thyroid Stim Hormone (TSH) 3.75 uIU/mL (0.358-3.74); Triglycerides 54 mg/dL; Very Low Density Lipoprotein 11 mg/dL (5-40)
[2023-01-23 11:15] LABS: Microalbumin,Random Urine < 5.0 mg/L (NO RANGE EST.)
[2023-01-28 11:09] LABS: HPV APTIMA, High Risk Negative (Negative)
== END | disposition home or self-care (01) ==
PROVIDERS: Internal Medicine Endocrinology, Diabetes & Metabolism; Referring Provider Obstetrics & Gynecology; Visit Provider Obstetrics & Gynecology
DX: Z12.4 Encounter for screening for malignant neoplasm of cervix (principal); E10.9 Type 1 diabetes mellitus without complications; N64.3 Galactorrhea not associated with childbirth; E55.9 Vitamin D deficiency, unspecified
CPT/HCPCS: 36415; 80053; 80061; 82043; 82306; 82570; 84146; 84443; 85025; 87624; 88175; G0145

== ENCOUNTER → 2023-01-27 | Outpatient (CLI) | payer OTHER, SELFPAY ==
--- NOTE | 2023-01-27 09:28 | BI_ITS ---
MAMMOGRAPHY - BILATERAL DIAGNOSTIC REASON FOR EXAM: Female, 32 years old. Galactorrhea PERTINENT HISTORY: History of nipple discharge TECHNIQUE: Digital examination. Mediolateral oblique (MLO) and craniocaudad (CC) views of both breasts were obtained. CAD: CAD was performed on this study. COMPARISON: Mammogram and ultrasound from 01/13/2022 FINDINGS: Breast Composition: The breasts are heterogeneously dense, which may obscure small masses. There are no dominant masses or suspicious calcifications. No other significant abnormalities are identified. There has been no significant change since the prior study. BI/DIAG MAMM W/CAD, BILAT IMPRESSION: Stable bilateral diagnostic mammogram. ASSESSMENT CATEGORY: BIRADS Category 2: Benign. A letter regarding these results will be sent to the patient by the facility within 30 days. FOLLOW UP RECOMMENDATION: Yearly follow up mammogram recommended. (A) Approximately 10% of breast cancers are not detected by mammography. A normal mammogram should not delay biopsy of a clinically suspicious abnormality. Electronically Signed: Parminder Clark MD at 10:12 EST ,
== END | disposition home or self-care (01) ==
LOC: OPBI 09:27
PROVIDERS: Referring Provider Obstetrics & Gynecology; Visit Provider Obstetrics & Gynecology
DX: N64.3 Galactorrhea not associated with childbirth (principal)
CPT/HCPCS: 77062; 77066; G0279

== ENCOUNTER → 2024-04-29 | Outpatient (CLI) | payer OTHER, SELFPAY | END | disposition home or self-care (01) | LOC: LABSPEC 15:25 | PROVIDERS: PCP Family Medicine; Visit Provider Family Medicine | DX: R10.9 Unspecified abdominal pain (principal) | CPT/HCPCS: 87086; 87088 ==

== ENCOUNTER → 2024-08-10 | Outpatient (CLI) | payer OTHER, SELFPAY ==
[2024-08-10 09:56] LABS: Microalbumin,Random Urine < 12.0 mg/L (NO RANGE EST.); Microalbumin:Creatinine Ratio UNABLE TO CALCULATE mg/g CRE
[2024-08-10 10:10] LABS: ALB/GLOB Ratio 1.6 RATIO (0.9-2.4); AST(SGOT) 16 U/L (<=31); Alanine Aminotransfer ALT/SGPT 12 U/L (<=34); Albumin, Serum 4.3 g/dL (3.5-5.0); Alkaline Phosphatase 52 U/L (35-104); Anion Gap 11 (5-15); BUN 16 mg/dL (4-19); BUN/Creat Ratio 21.2 RATIO (10-20); Calcium,Total 9.3 mg/dL (7.6-11.0); Carbon Dioxide 23.3 mmol/L (21.0-32.0); Chloride 104 mmol/L (98-108); Cholesterol 207 mg/dL (<=200); Creatinine, Serum 0.75 mg/dL (0.70-1.20); EST Glomerular Filtration Rate 107 (>60); Globulin 2.7 g/dL (2.2-4.2); Glucose 163 mg/dL (70-99); High Density Lipoprotein 76 mg/dL; Low Density Lipoprotein Calc. 118 mg/dL; Potassium 4.1 mmol/L (3.3-5.1); Protein, Total 6.9 g/dL (5.9-8.4); Sodium Level 138 mmol/L (133-145); Total Bilirubin 0.67 mg/dL (0.00-1.30); Triglycerides 64 mg/dL; Very Low Density Lipoprotein 13 mg/dL (5-40); Vitamin D,25 Hydroxy 30.8 ng/mL (30-100); cholesterol:hdl ratio screen 2.73
--- OUTSIDE RECORDS SUMMARY | 2024-08-10 10:52 | XMS RPT_ITS | CCD ---
Author Organization [facility] Care Team Providers Care Laboratory Engineer Name Role Phone Dr. Chula Palacios Primary Care Provider Dr. Chula Palacios Referring Provider Dr. Jaime Sidhu Attending Provider Dr. Kelsy Kaye Attending Provider Devyn RASHEED, PA Mario Matamoros Attending Provider Dr. Chula Palacios Primary Care Provider [phone] Dr. Chula Palacios Referring Provider Dr. Jaime Sidhu Attending Provider Dr. Kelsy Kaye Attending Provider Dr. Chula Palacios MD Primary Care Provider [phone] Dr. Chula Palacios MD Attending Provider Jaime Sidhu Attending Unavailable Care Physician, No Primary Primary Care Unava ilable Chula Palacios Referring Unavailable Chula Palacios Primary Care Unavailable Lidia Velez Attending Unavailable Care Physician, No Primary Referring Unava ilable Chula Palacios Attending Unavailable Chula Palacios Primary Care Unavailable Medications Current Medications Medication Drug Class(es) Dates Sig (Normalized) Sig (Original) insulin aspart, human 100 unt/ml injectable solution (20 sources) Insulin Analog Start: 02-17-2023 End: 12-11-2023 Insulin Aspart U-100 (Novolog U-100 Insulin Aspart) 100 unit/mL solution Active 50 U SC .daily via pump December 11, 2023 12:50pm Start: 02-04-2021 End: 12-11-2023 Insulin Aspart U-100 (Novolo g Flexpen U-100 Insulin) 100 unit/mL (3 mL) insulin pen Discontinued 5 U SC THREE TIMES A DAY January 23, 2023 8:55am December 11, 2023 12:24pm Start: 08-09-2019 End: 10-26-2019 Insulin Aspart U-100 (Novolo g Flexpen U-100 Insulin) 100 unit/mL (3 mL) insulin pen Discontinued 10 U SC THREE TIMES A DAY August 08, 2019 11:00pm October 26, 2019 1:01pm Completed/Discontinued Medications Medication Drug Class(es) Dates Sig (Normalized) Sig (Original) acetaminophen 325 mg / HYDROcodone bitartrate 5 mg oral tablet (4 sources) Opioid Agonist Start: 08-05-2020 End: 12-24-2020 Hydrocodone-Acetami nophen 5-325 mg tablet Discontinued 1 {tbl} PO EVERY 6 HOURS NEEDED as needed for Pain 12 August 05, 2020 December 24, 2020 12:12pm Start: 08-05-2020 End: 12-24-2020 take 1 tablet by mouth every six hours as needed Hydrocodone-Acetaminophen Discontinued 1 TABLET PO EVERY 6 HOURS NEEDED 12 August 05, 2020 December 24, 2020 12:12pm amoxicillin 500 mg oral capsule (6 sources) Penicillin-class Antibacterial Start: 04-17-2022 End: 04-27-2022 take 1 capsule by mouth three times daily Amoxicillin 500 mg capsule Discontinued 500 mg PO THREE TIMES A DAY 30 April 17, 2022 12:00am April 26, 2022 12:00am April 27, 2022 12:05am Start: 01-08-2022 End: 01-18-2022 take 2 capsules by mouth twice daily Amoxicillin 500 mg capsule Discontinued 1000 mg PO TWICE A DAY 40 January 07, 2022 11:00pm January 17, 2022 12:00am January 18, 2022 12:10am Start: 01-08-2022 End: 01-18-2022 take 1000 mg by mouth twice daily Amoxicillin Discontinued 1000 MG PO TWICE A DAY 40 January 07, 2022 11:00pm January 18, 2022 12:10am betamethasone 0.5 mg/ml topical cream (2 sources) Corticosteroid Start: 01-23-2023 End: 12-11-2023 Betamethasone Dipropionate 0.05 % cream Discontinued 1 NMA TOPICAL DAILY as needed for rash January 23, 2023 12:00am December 11, 2023 12:23pm dexamethasone 4 mg oral tablet (4 sources) Corticosteroid Start: 12-06-2019 End: 12-19-2019 take 1 tablet by mouth twice daily at mealtime Dexamethasone 4 MG tablet Discontinued 4 mg PO TWICE DAILY WITH MEALS December 05, 2019 11:00pm December 19, 2019 10:26am Flash Glucose Sensor (Freestyle Scott 14 Day Sensor) kit (4 sources) Start: 01-28-2021 End: 11-25-2021 Flash Glucose Sensor (Freestyle Scott 14 Day Sensor) kit Discontinued 0 .ROUTE .MEDSUPPLY 2 January 28, 2021 12:00am November 25, 2021 12:41pm As directed Start: 01-28-2021 End: 11-25-2021 Flash Glucose Sensor (Freest yle Scott 14 Day Sensor) kit Discontinued 0 .ROUTE .MEDSUPPLY 2 January 28, 2021 1:00am November 25, 2021 1:41pm As directed glimepiride 4 mg oral tablet (4 sources) Sulfonylurea Start: 01-28-2021 End: 02-04-2021 take 1 tablet by mouth once daily Glimepiride 4 mg tablet Discontinued 4 mg PO DAILY January 28, 2021 12:00am February 04, 2021 8:15am glyBURIDE 5 mg oral tablet (8 sources) Sulfonylurea Start: 11-04-2017 End: 10-28-2018 take 1 tablet by mouth at bedtime Glyburide 5 MG tablet Discontinued 5 mg PO AT BEDTIME November 03, 2017 11:00pm October 28, 2018 7:57am Start: 12-15-2015 End: 12-18-2015 take 1 tablet by mouth at bedtime Glyburide 5 MG tablet Discontinued 5 mg PO AT BEDTIME December 14, 2015 11:00pm December 17, 2015 11:31pm ibuprofen 600 mg oral tablet (4 sources) Nonsteroidal Anti-inflammatory Drug Start: 11-04-2017 End: 10-28-2018 take 1 tablet by mouth every six hours as needed for pain Ibuprofen 600 MG tablet Discontinued 600 mg PO EVERY 6 HOURS NEEDED as needed for pain or cramping November 04, 2017 4:32pm October 28, 2018 7:56am 3 ml insulin degludec 100 unt/ml pen injector (12 sources) Insulin Analog Start: 01-02-2022 End: 05-26-2022 Insulin Degludec (Tresiba Flextouch U-100) 100 unit/mL (3 mL) insulin pen Discontinued 14 U SC AT BEDTIME January 02, 2022 12:22pm May 26, 2022 12:25pm Start: 02-04-2021 End: 01-02-2022 Insulin Degludec (Tresiba Fl extouch U-100) 100 unit/mL (3 mL) insulin pen Discontinued 15 U SC AT BEDTIME November 25, 2021 1:00pm January 02, 2022 12:22pm Insulin Degludec (Tresiba Flextouch U-100) 100 unit/mL (3 mL) insulin pen (6 sources) Start: 01-23-2023 End: 12-11-2023 Insulin Degludec (Tresiba Flextouch U-100) 100 unit/mL (3 mL) insulin pen Discontinued 18 U SC AT BEDTIME January 23, 2023 8:55am December 11, 2023 12:24pm Start: 01-23-2023 Insulin Deglud ec (Tresiba Flextouch U-100) 100 unit/mL (3 mL) insulin pen Active 18 UNIT SC AT BEDTIME January 23, 2023 8:55am Start: 12-02-2022 End: 01-23-2023 Insulin Degludec (Tresiba Fl extouch U-100) 100 unit/mL (3 mL) insulin pen Discontinued 14 U SC AT BEDTIME December 02, 2022 12:44pm January 23, 2023 8:56am Start: 12-02-2022 End: 01-23-2023 Insulin Degludec (Tresiba Fl extouch U-100) 100 unit/mL (3 mL) insulin pen Discontinued 14 UNIT SC AT BEDTIME December 02, 2022 12:44pm January 23, 2023 8:56am Start: 05-26-2022 End: 12-02-2022 Insulin Degludec (Tresiba Fl extouch U-100) 100 unit/mL (3 mL) insulin pen Discontinued 14 U SC AT BEDTIME May 26, 2022 12:25pm December 02, 2022 12:44pm Start: 05-26-2022 End: 12-02-2022 Insulin Degludec (Tresiba Fl extouch U-100) 100 unit/mL (3 mL) insulin pen Discontinued 14 UNIT SC AT BEDTIME May 26, 2022 12:25pm December 02, 2022 12:44pm 3 ml insulin detemir 100 unt/ml pen injector (8 sources) Insulin Analog Start: 04-19-2019 End: 10-26-2019 Insulin Detemir U-100 (Levemir Flextouch U-100 Insuln) 100 unit/mL (3 mL) insulin pen Discontinued 40 U SC AT BEDTIME September 16, 2019 12:01pm October 26, 2019 1:01pm 3 ml insulin lispro 100 unt/ml pen injector (16 sources) Insulin Analog Start: 08-04-2019 End: 08-09-2019 Insulin Lispro (Humalog Kwikpen Insulin) 100 unit/mL insulin pen Discontinued 10 U SC THREE TIMES A DAY August 04, 2019 7:02am August 09, 2019 10:56am Start: 07-25-2019 End: 08-04-2019 Insulin Lispro (Humalog Kwik pen Insulin) 100 unit/mL insulin pen Discontinued 5 U SC THREE TIMES A DAY July 24, 2019 11:00pm August 04, 2019 7:02am Start: 05-02-2019 End: 08-04-2019 Insulin Lispro (Humalog Kwik pen Insulin) 200 unit/mL (3 mL) insulin pen Discontinued 2 U SC .each meal May 02, 2019 12:00am August 04, 2019 7:01am and sliding scale metFORMIN hydrochloride 1000 mg oral tablet (4 sources) Biguanide Start: 01-28-2021 End: 02-04-2021 take 1 tablet by mouth once daily Metformin 1,000 mg tablet Discontinued 1000 mg PO DAILY January 28, 2021 12:00am February 04, 2021 8:15am oseltamivir 75 mg oral capsule (4 sources) Neuraminidase Inhibitor Start: 04-05-2019 End: 04-19-2019 take 1 capsule by mouth once daily Oseltamivir (Tamiflu) 75 mg capsule Discontinued 75 mg PO DAILY April 05, 2019 12:00am April 19, 2019 4:10pm vitamin d 2000 unt oral capsule (4 sources) Start: 11-04-2017 End: 10-28-2018 take 2000 [IU] by mouth once daily Vitamin D Discontinued 2000 U PO DAILY November 03, 2017 11:00pm October 28, 2018 7:56am Start: 11-04-2017 End: 10-28-2018 take 2000 [IU] by mouth once daily Vitamin D Discontinued 2000 UNITS PO DAILY November 03, 2017 11:00pm October 28, 2018 7:56am Start: 11-04-2017 End: 10-28-2018 take 2000 [IU] by mouth once daily Vitamin D Discontinued 2000 UNITS PO DAILY November 04, 2017 12:00am October 28, 2018 8:56am Problems Active Problems Problem Classification Problem Date Documented Date Episodic/Chronic Abdominal pain (1 source) Unspecified abdominal pain; Translations: [Unspecified abdominal pain] Onset: 05-12-2024 Episodic Allergic reactions (3 sources) Inflammatory dermatosis; Translations: [Dermatitis, unspecified] 01-23-2023 Episodic Comment on above: betamethasone ordere d, recommend derm follow up Diabetes mellitus without complication (10 sources) Diabetes mellitus; Translations: [Type 2 diabetes mellitus without complications] Onset: 02-01-2024 Chronic Diabetes or abnormal glucose tolerance complicating ; childbirth; or the puerperium (4 sources) 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 Sidhu on insuline; s/p optho cs. Nl baseline labs. plan Growth US q4w after 32 wk, twice weekly NSTs, deliver at 40 Diabetes or abnormal glucose tolerance complicating ; childbirth; or the puerperium (4 sources) History of gestational diabetes mellitus; Translations: [Personal history of gestational diabetes] 01-23-2023 Episodic Comment on above: screening every 2 ye ars until 36 then annually Immunizations and screening for infectious disease (4 sources) Contact with and (suspected) exposure to other viral communicable diseases; Translations: [Exposure to influenza] 10-26-2019 Episodic Comment on above: Flu B- tamiflu Nonmalignant breast conditions (7 sources) Increased ; Translations: [Galactorrhea not associated with childbirth] Episodic Comment on above: mamm prl ordered, po ssible gen surg consult Other complications of (4 sources) High risk ; Translations: [Supervision of high risk , unspecified, unspecified trimester] 12-24-2020 Episodic Comment on above: PRR DARCY 11/13/19 girl Aldo Zamora Spouse: Jorge A Other female genital disorders (4 sources) History of abnormal cervical Papanicolaou smear ; Translations: [Personal history of other diseases of the female genital tract] 12-24-2020 Episodic Comment on above: Pap done at [facility] Other and delivery including normal (4 sources) ; Translations: [Encounter for supervision of normal , unspecified, unspecified trimester] 12-24-2020 Episodic Comment on above: declined genetic, ca rrier and NTD screening. nl anatomy. Other upper respiratory infections (14 sources) Acute frontal sinusitis; Translations: [Acute frontal sinusitis, unspecified] Episodic Residual codes; unclassified (4 sources) FH: Thyroid disorder; Translations: [Family history of other endocrine, nutritional and metabolic diseases] 10-26-2019 Episodic Comment on above: Nl labs Superficial injury; contusion (4 sources) Contusion of back; Translations: [Contusion of unspecified back wall of thorax, initial encounter] 12-24-2020 Episodic Past or Other Problems Problem Classification Problem Date Documented Da te Episodic/Chronic Diabetes mellitus without complication (6 sources) Hyperglycemia; Translations: [Hyperglycemia, unspecified] Onset: 02-01-2024 01-23-2023 Episodic Results Test Name Value Interpretation Reference Range Facility Field Marketing Representative Office Visit Reporton 06-15-2024 Field Marketing Representative Office Visit Report [facility] [address], [address] [place] [address] OFFICE VISIT Date of Service: 06/15/24 MR#: [id number] Acct: [id number] Name: KADE SAMUELS Rep #: [id number] : 1990 Provider: MIKKI Saleh Age/Sex: 34/F Location: [facility] [place] Status: Signed Intake Vital Signs 12/11/23 13:17 06/15/24 15:29 Height 5 ft 7 in 5 ft 7 in Weight: 161 lb 6 oz 171 lb 6 oz BMI 25.2 26.8 BP 99/68 107/62 Blood Pressure Location Lt brachial Position Sitting Pulse 89 Pulse Source Monitor Pulse Oximetry (%) 98 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) Certified Nuclear Medicine Technologist Required: No Is patient in pain?: No Allergies No Known Allergies Allergy (Verified 06/15/24 15:32) Medications ???Medication ???Instructions ???Recorded ???Confirmed ???Type insulin aspart U-100 100 unit/mL 50 unit (0.5 mL) subcut .daily via 12/11/23 06/15/24 Rx subcutaneous solution (Novolog pump #50 mL U-100 Insulin aspart) Post menopausal: No Patient : No : No PFSH Medical History Presence of insulin pump Diabetes mellitus type 1 Acute sinusitis, unspecified Acute pharyngitis, unspecified Acute frontal sinusitis, unspecified Type 1 diabetes Hyperglycemia Abnormal Pap smear of cervix Surgical History S/P wisdom tooth extraction Status post colposcopy Family History Grandmother Diabetes Lung cancer Ovarian cancer, Onset Age: 68 Sister Diabetes mellitus type 1 Social History Smoking Status: Never smoker second hand exposure: No alcohol intake: never substance use type: does not use caffeine: Yes what type of physical activity do you participate in: walking frequency: 3-4 times per week seatbelt use: always do you feel safe at home: Yes additional social history: -Jorge A- [employer] Patient is stay at home mom History 3 Elective abortions Hx Para 3 Spontaneous abortions Hx # Term Pregnancies Ectopic pregnancies Hx # Pregnancies Multiple births # of living children 3 Past Pregnancies Del. Date Name GA/Weeks Outcome Route Bth Weight Infant Gen Labor Lgth Anesthesia Del Locatn Provider FOB 12/17/15 [place] 39 live - full term 8lbs 3oz Male 17 hours epidural [facility] Dr. Jelly Jules 11/04/17 Aldo 38 live - full term 8lbs 5oz Female 6 hours epidural [facility] Dr. Yfn Jules 10/26/19 Carm[place] 38 live - full term Female [facility] Alaina everett Delivery Date: 12/17/15 Last Updated by: Chula oLuis Gestational diabetes. Induced due to diabetes Delivery Date: 11/04/17 Last Updated by: Chula Louis Gestational diabetes Delivery Date: 10/26/19 Last Updated by: Talita Jones Class B Diabetes insulin controlled HPI Encounter for routine gynecological examination Details: KADE SAMUELS is a 34 year old who presents for annual exam. She is doing well; no issues or concerns. with vasectomy Last PAP: 2022; normal. hpv neg. History of abnormal PAP: ASCUS 2014,2017. LGSIL 2016. Last mammogram: age 41. History of abnormal mammogram: n/a Colon cancer screening: age 46. Other preventative health care screenings: Chula Palacios; PCP. Female Reproductive History Last Menstrual Period: 06/06/24 Cycle Length: 21-35 Bleeding Duration: 5 Questions: metorrhagia: No, sexually active: Yes (vasectomy), dyspareunia: No and PCB: No ROS Const Constitutional: Denies chills, fatigue, fever(s), headache(s) or weight loss Eyes Eyes: Denies change in vision ENT ENT: Denies dizziness Resp Resp: Denies cough GI GI: Denies abdominal pain, constipation or nausea : Denies difficulty voiding, dysuria, hematuria, nipple discharge, pelvic pain, prolapse symptoms, urinary incontinence, vaginal discharge, vaginal dryness, vaginal odor or vaginal pruritus Skin Skin/Breast: Denies alopecia, rash, breast mass, breast pain, breast skin changes or nipple discharge Neuro Neuro: Denies dizziness Psych Psych: Denies anxiety or depression Endo Endo: Denies cold intolerance, excessive sweating or heat intolerance Exam Const General: cooperative, healthy appearing, comfortable, no acute distress, well groomed and well hydrated Nutritional Appearance: well nourished Orientation: alert, awake and oriented x3 HENMT Head: normal to inspection and normocephalic Ears: hearing grossly normal bilaterally and external ears normal Nose: external nose normal Face and sinus: normal facial exam Eyes General: appearance normal, both eyes and all related structures Neck Neck: normal visual (more content not included)... Normal [facility] Urine Cultureon 05-02-2024 URC Mixed Gram Positive Organisms [place] Count 1000-10,000 MIXC Mixed contaminants. Submit a new specimen if indicated. Normal [facility] Comment on above: Performed By: #### M [id number] #### [facility] [address] [place], [address] Urine cultureOrdered By: Rolf Palacios on 04-29-2024 Bacteria identified Cx Nom (U) Positive Abnormal [facility] Endocrinology Visit Reporton 12-11-2023 Endocrinology Visit Report [facility] [address] [place] [address] OFFICE VISIT Date of Service: 12/11/23 MR#: [id number] Acct: [id number] Name: KADE SAMUELS Rep #: [id number] : 1990 Provider: Shiloh Walsh Age/Sex: 33/F Location[place] [facility] Status: Signed Intake Vital Signs 12/02/22 13:16 01/23/23 09:00 12/11/23 13:17 Height 5 ft 7 in 5 ft 7 in 5 ft 7 in Weight: 161 lb 6 oz BMI 25.2 BP 99/68 Blood Pressure Location Lt brachial Position Sitting Pulse 89 Pulse Source Monitor Pulse Oximetry (%) 98 Intake Visit Reasons: 1 Y FU Chief Complaint: Diabetes Is patient in pain?: No Allergies No Known Allergies Allergy (Verified 01/23/23 08:55) Medications ???Medication ???Instructions ???Recorded ???Confirmed ???Type insulin aspart U-100 100 unit/mL 50 unit (0.5 mL) subcut .daily via 12/11/23 12/11/23 Rx subcutaneous solution (Novolog pump #50 mL U-100 Insulin aspart) [facility] Medical History (Updated 12/24/23 @ 07:[address] Jaime Sidhu MD) Presence of insulin pump Diabetes mellitus type 1 Acute sinusitis, unspecified Acute pharyngitis, unspecified Acute frontal sinusitis, unspecified Type 1 diabetes Hyperglycemia Abnormal Pap smear of cervix Surgical History S/P wisdom tooth extraction Status post colposcopy Family History Grandmother Diabetes Lung cancer Ovarian cancer, Onset Age: 68 Sister Diabetes mellitus type 1 Social History Smoking Status: Never smoker second hand exposure: No alcohol intake: never substance use type: does not use caffeine: Yes what type of physical activity do you participate in: walking frequency: 3-4 times per week seatbelt use: always do you feel safe at home: Yes additional social history: -Jorge A- [employer] Patient is stay at home mom HPI HPI Chief Complaint: Diabetes Details: KADE SAMUELS, is a 33 F who presents to the office today for follow up. A1c is 6.7% She is using Omnipod insulin pump with Dexcom CGM and automated mode. She is well controlled. She is feeling well. No further pregnancies planned. ROS Const Constitutional: No fatigue, weight change or change in appetite Eyes Eyes: No change in vision ENT ENT: No dizziness/vertigo or difficulty swallowing Cardio Cardiology: No chest pain at rest, chest pain with exertion, shortness of breath or palpitations Musc Musculoskeletal: No abnormal gait, joint pain, numbness or tingling Neuro Neurology: No abnormal gait, memory loss, numbness or tingling Psych Psychiatric: No change in appetite, No memory loss and No Thoughts of harming yourself/Others Resp Respiratory: No cough, chest congestion or shortness of breath Gastro GI: No abdominal pain, constipation, diarrhea or difficulty swallowing Genitourinary-Female : No burning urination Skin Skin: No itchy eyes or wounds Endo Endocrine: No fatigue or weight change Aller/Imm Allergy/Immunologic: No itchy eyes Exam Const General: cooperative, healthy appearing, comfortable, no acute distress, well developed and not cushingoid Nutritional Appearance: well nourished Orientation: alert, awake and oriented x3 HENMT Head: normal to inspection Ears: hearing grossly normal bilaterally Nose: external nose normal Mouth: oral mucosae normal Eyes General: appearance normal, both eyes and all related structures Alignment and Position: alignment normal Periorbital: periorbital findings normal Eyelids: eyelids normal Conjunctivae: conjunctivae normal Neck Neck: normal visual inspection Neck mass: No Thyroid: thyroid normal Lymphatic: no lymphadenopathy noted Chest Chest palpation inspection: normal inspection of the chest Resp Effort Inspection: normal respiratory effort, able to speak in complete sentences, symmetric chest movement, no audible wheezes and no cough Auscultation: Bilateral: Clear to Auscultation Cardio Rate: regular rate Rhythm: regular rhythm Pulses: posterior tibial pulses present GI Inspection: normal to inspection Skin General: no rashes or lesions noted Neuro General: patient alert, patient awake and patient oriented x3 Cranial Nerves: CN's II-XI intact bilaterally Cognition: normal cognition Speech: speech normal Gait: normal gait Motor: muscle tone normal throughout Extrem General: no edema Psych Appearance: grossly normal Mental Status: mental status grossly normal Mood: congruent mood Affect: normal affect Speech and Movement: speech and movement normal Attitude: cooperative Thought Process: normal Thought Content: normal Judgment: (more content not included)... Normal [facility] Absolute lymphocyte countOrd ered By: Jaiem Sidhu on 01-23-2023 Lymphocytes Auto (Unsp spec) [#/Vol] 0.85 10*3/uL 0.83-4.51 [facility] Basophil percentageOrdered B y: Jaime Sidhu on 01-23-2023 Basophils/100 WBC (Bld) 0.6 % 0-1 [facility] Bilirubin [Mass/Vol] 0.70 mg/dL 0.20-1.00 [facility] Comment on above: For patients on eltr ombopag therapy, use of Dimension [place] TBIL is not recommended. Chloride [Moles/Vol] 107 mmol/L 98-107 [facility] Cholesterol [Mass/Vol] 205 mg/dL <200 [facility] Comment on above: <200 mg/dL Desirable 200-240 mg/dL Borderline >240 mg/dL High Risk Eosinophils/100 WBC (Bld) 0.2 % 0-5 [facility] Glucose [Mass/Vol] 229 mg/dL 74-106 [facility] Comment on above: Glucose result great er than or equal to 200 mg/dLsuggests DIABETES MELLITUS per A.D.A. criteria. Neutrophils (Bld) [#/Vol] 3.8 10*3/uL 2.0-7.7 [facility] Neutrophils/100 WBC (Bld) 77.1 % 47-70 [facility] Potassium [Moles/Vol] 4.1 mmol/L 3.5-5.1 [facility] Protein [Mass/Vol] 7.1 g/dL 6.4-8.2 [facility] Sodium [Moles/Vol] 137 mmol/L 136-145 [facility] Triglyceride [Mass/Vol] 54 mg/dL <199 [facility] Comment on above: The drugs N-Acetylcy steine and Metamizole may falsely depress this assay.Serum Triglycerides Reference Interval Normal <150 mg/dL Borderline high 150 - 199 mg/dL High 200 - 499 mg/dL Very High > or = 500 mg/dL WBC (Bld) [#/Vol] 4.9 10*3/uL 4.4-11.0 [facility] Blood erythrocytes count (nu mber/volume)Ordered By: Jaime Sidhu on 01-23-2023 RBC (Bld) [#/Vol] 4.57 10*6/uL 4.2-5.4 [facility] Blood hemoglobin measurement (mass/volume)Ordered By: Jaime Sidhu on 01-23-2023 Hemoglobin (Bld) [Mass/Vol] 13.5 g/dL 12.0-15.0 [facility] Blood lymphocytes/100 leukoc ytesOrdered By: Jaime Sidhu on 01-23-2023 Lymphocytes/100 WBC (Bld) 17.4 % 19-41 [facility] Blood monocytes/100 leukocyt esOrdered By: Jaime Sidhu on 01-23-2023 Monocytes/100 WBC (Bld) 4.5 % 0-10 [facility] Blood platelet mean volumeOr dered By: Jaime Sidhu on 01-23-2023 Platelet mean volume (Bld) [Entitic vol] 10.3 fL 6.2-12.0 [facility] Determination of erythrocyte mean corpuscular volume (MCV)Ordered By: Jaime Sidhu on 01-23-2023 MCV (RBC) [Entitic vol] 92.8 fL 81-99 [facility] Hematocrit Auto (Bld) [Volum e fraction]Ordered By: Jaime Sidhu on 01-23-2023 Hematocrit (Bld) [Volume fraction] 42.4 % 37-47 [facility] Laboratory - Chemistry and C hemistry - challengeOrdered By: Jaime Sidhu on 01-23-2023 ALP [Catalytic activity/Vol] 54 U/L 45-117 [facility] ALT [Catalytic activity/Vol] 21 U/L 13-56 [facility] CO2 [Moles/Vol] 23.0 mmol/L 21.0-32.0 [facility] Globulin (S) [Mass/Vol] 3.2 g/dL 2.2-4.2 [facility] Urea nitrogen/Creatinine [Mass ratio] 21.8 mg/mg 10-20 [facility] Laboratory - Hematology and Cell countsOrdered By: Jaime Sidhu on 01-23-2023 Erythrocyte distribution width (RBC) [Entitic vol] 45.1 fL 35.1-43.9 [facility] Erythrocyte distribution width (RBC) [Ratio] 13.2 % 11.6-14.6 [facility] Immature granulocytes/100 WBC (Bld) 0.200 % 0.0-0.9 [facility] Comment on above: IG% - Immature Granu locytes (promyelocytes, myelocytes and metamyelocytes) > 1% indicates that a LEFT SHIFT is Present. MCH (RBC) [Entitic mass] 29.5 pg 27.0-32.0 [facility] Nucleated RBC/100 WBC (Bld) [Ratio] 0 % 0-5 [facility] MCHC Auto (RBC) [Mass/Vol]Or dered By: Jaime Sidhu on 01-23-2023 MCHC (RBC) [Mass/Vol] 31.8 g/dL 32-36 [facility] No Panel InformationOrdered By: Jaime Sidhu on 01-23-2023 Estimated GFR (MDRD) Amer 118 mL/min >60 [facility] Comment on above: GFR Calc Estimated GFR (MDRD) Non-Af Amer 98 mL/min >60 [facility] Comment on above: Non- GFR Calc Thyroid Stimulating Hormone (TSH) 3.75 uIU/mL 0.358-3.74 [facility] Urine Microalbumin/Creatinine Ratio TNP [facility] Comment on above: Test not performed Vitamin D 25-Hydroxy 42.3 ng/mL [facility] Comment on above: Vitamin D 25(OH) Sta tus Range Deficiency <20 ng/mL (50nmol/L) Insufficiency 20 - 30 ng/mL (50 - 75 nmol/L) Sufficiency 30 - 100 ng/mL (75 - 250 nmol/L) Toxicity >100 ng/mL (>250 nmol/L) Platelets bldOrdered By: Jose Alejandro Sidhu on 01-23-2023 Platelets (Bld) [#/Vol] 224 10*3/uL 150-450 [facility] Serum or plasma albumin baron urement (mass/volume)Ordered By: Jaime Sidhu on 01-23-2023 Albumin [Mass/Vol] 3.9 g/dL 3.2-5.0 [facility] Serum or plasma albumin/glob ulin mass ratioOrdered By: Jaime Sidhu on 01-23-2023 Albumin/Globulin [Mass ratio] 1.2 {ratio} 0.9-2.4 [facility] Serum or plasma calcium baron urement (mass/volume)Ordered By: Jiame Sidhu on 01-23-2023 Calcium [Mass/Vol] 8.7 mg/dL 8.5-10.1 [facility] Serum or plasma cholesterol in HDL measurement (mass/volume)Ordered By: Jaime Sidhu on 01-23-2023 Cholesterol in HDL [Mass/Vol] 70 mg/dL >40 [facility] Comment on above: The drugs N-Acetylcy steine and Metamizole may falsely depress this assay. Reference Range HDL <40 mg/dL Low HDL Cholesterol HDL >or= 60 mg/dL High HDL Cholesterol Serum or plasma cholesterol in VLDL measurement (mass/volume)Ordered By: Jaime Sidhu on 01-23-2023 Cholesterol in VLDL [Mass/Vol] 11 mg/dL 5-40 [facility] Serum or plasma creatinine m easurement (mass/volume)Ordered By: Jaime Sidhu on 01-23-2023 Creatinine [Mass/Vol] 0.74 mg/dL 0.55-1.02 [facility] Comment on above: The validity of the calculated GFR & GFRAA in patients over 70 years has not been determined. Clinical correlation is essential. Serum or plasma low density lipoprotein (LDL) cholesterol measurement (mass/volume)Ordered By: Jaime Sidhu on 01-23-2023 Cholesterol in LDL [Mass/Vol] 124 mg/dL 0-130 [facility] Serum or plasma prolactin me asurement (mass/volume)Ordered By: Kelsy Kaye on 01-23-2023 Prolactin [Mass/Vol] 5.5 ng/mL [facility] Comment on above: NORMAL REFERENCE RAN GES FEMALE NON- 2.2 - 30.3 ng/mL 8.1 - 347.6 ng/mL POST-MENOPAUSAL 0.7 - 31.5 ng/mL MALE 2.5 - 17.4 ng/mL Serum or plasma urea nitroge n measurement (mass/volume)Ordered By: Jaime Sidhu on 01-23-2023 Urea nitrogen [Mass/Vol] 16 mg/dL 7-18 [facility] Thin prep Papanicolaou smear with manual screeningOrdered By: Jaime Sidhu on 01-23-2023 Thin prep Papanicolaou smear with manual screening 11 U/L 15-37 [facility] Thin prep Papanicolaou smear with manual screening 7 5-15 [facility] Thin prep Papanicolaou smear with manual screening < 5.0 mg/L NO RANGE EST. [facility] Urine creatinine measurement (mass/volume)Ordered By: Jaime Sidhu on 01-23-2023 Creatinine (U) [Mass/Vol] 47.30 mg/dL NO RANGE EST. [facility] Laboratory - Hematology and Cell countson 12-02-2022 HbA1c (Bld) [Mass fraction] 5.6 % 4.2-6.3 [facility] Laboratory - Microbiology an d Antimicrobial susceptibilityon 01-08-2022 S. pyogenes Ag IA Ql (Unsp spec) Negative [facility] Work Phone: Absolute lymphocyte counton 01-03-2022 Lymphocytes Auto (Unsp spec) [#/Vol] 1.21 10*3/uL 0.83-4.51 [facility] Work Phone: Basophil percentageon 2021 Basophils/100 WBC (Bld) 0.7 % 0-1 [facility] Work Phone: Bilirubin [Mass/Vol] 0.80 mg/dL 0.20-1.00 [facility] Work Phone: Comment on above: For patients on eltr ombopag therapy, use of Dimension [place] TBIL is not recommended. Chloride [Moles/Vol] 106 mmol/L 98-107 [facility] Work Phone: Cholesterol [Mass/Vol] 165 mg/dL <200 [facility] Work Phone: Comment on above: <200 mg/dL Desirable 200-240 mg/dL Borderline >240 mg/dL High Risk Eosinophils/100 WBC (Bld) 0.3 % 0-5 [facility] Work Phone: Glucose [Mass/Vol] 110 mg/dL 74-106 [facility] Work Phone: Comment on above: Fasting Glucose resu lt from 100 to 125 mg/dL suggests IMPAIRED HOMEOSTASIS per A.D.A. criteria. Neutrophils (Bld) [#/Vol] 4.4 10*3/uL 2.0-7.7 [facility] Work Phone: Neutrophils/100 WBC (Bld) 74.1 % 47-70 [facility] Work Phone: Potassium [Moles/Vol] 4.2 mmol/L 3.5-5.1 [facility] Work Phone: Protein [Mass/Vol] 7.1 g/dL 6.4-8.2 [facility] Work Phone: Sodium [Moles/Vol] 138 mmol/L 136-145 [facility] Work Phone: Triglyceride [Mass/Vol] 43 mg/dL <199 [facility] Work Phone: Comment on above: The drugs N-Acetylcy steine and Metamizole may falsely depress this assay.Serum Triglycerides Reference Interval Normal <150 mg/dL Borderline high 150 - 199 mg/dL High 200 - 499 mg/dL Very High > or = 500 mg/dL WBC (Bld) [#/Vol] 6.0 10*3/uL 4.4-11.0 [facility] Work Phone: Blood erythrocytes count (nu mber/volume)on 01-03-2022 RBC (Bld) [#/Vol] 4.20 10*6/uL 4.2-5.4 [facility] Work Phone: Blood hemoglobin measurement (mass/volume)on 01-03-2022 Hemoglobin (Bld) [Mass/Vol] 13.3 g/dL 12.0-15.0 [facility] Work Phone: Blood lymphocytes/100 leukoc yteson 01-03-2022 Lymphocytes/100 WBC (Bld) 20.2 % 19-41 [facility] Work Phone: Blood monocytes/100 leukocyt eson 01-03-2022 Monocytes/100 WBC (Bld) 4.5 % 0-10 [facility] Work Phone: Blood platelet mean volumeon 01-03-2022 Platelet mean volume (Bld) [Entitic vol] 10.2 fL 6.2-12.0 [facility] Work Phone: Determination of erythrocyte mean corpuscular volume (MCV)on 01-03-2022 MCV (RBC) [Entitic vol] 92.9 fL 81-99 [facility] Work Phone: Hematocrit Auto (Bld) [Volum e fraction]on 01-03-2022 Hematocrit (Bld) [Volume fraction] 39.0 % 37-47 [facility] Work Phone: Laboratory - Chemistry and C hemistry - challengeon 01-03-2022 ALP [Catalytic activity/Vol] 53 U/L 45-117 [facility] Work Phone: ALT [Catalytic activity/Vol] 17 U/L 13-56 [facility] Work Phone: CO2 [Moles/Vol] 28.0 mmol/L 21.0-32.0 [facility] Work Phone: Globulin (S) [Mass/Vol] 3.4 g/dL 2.2-4.2 [facility] Work Phone: Urea nitrogen/Creatinine [Mass ratio] 15.5 mg/mg 10-20 [facility] Work Phone: Laboratory - Hematology and Cell countson 01-03-2022 Erythrocyte distribution width (RBC) [Entitic vol] 45.3 fL 35.1-43.9 [facility] Work Phone: Erythrocyte distribution width (RBC) [Ratio] 13.2 % 11.6-14.6 [facility] Work Phone: Immature granulocytes/100 WBC (Bld) 0.200 % 0.0-0.9 [facility] Work Phone: Comment on above: IG% - Immature Granu locytes (promyelocytes, myelocytes and metamyelocytes) > 1% indicates that a LEFT SHIFT is Present. MCH (RBC) [Entitic mass] 31.7 pg 27.0-32.0 [facility] Work Phone: Nucleated RBC/100 WBC (Bld) [Ratio] 0 % 0-5 [facility] Work Phone: MCHC Auto (RBC) [Mass/Vol]on 01-03-2022 MCHC (RBC) [Mass/Vol] 34.1 g/dL 32-36 [facility] Work Phone: No Panel Informationon 01-03 Estimated GFR (MDRD) Amer 138 mL/min >60 [facility] Work Phone: Comment on above: GFR Calc Estimated GFR (MDRD) Non-Af Amer 114 mL/min >60 [facility] Work Phone: Comment on above: Non- GFR Calc Thyroid Stimulating Hormone (TSH) 1.61 uIU/mL 0.358-3.74 [facility] Work Phone: Urine Microalbumin/Creatinine Ratio TNP [facility] Work Phone: Comment on above: Test not performed Vitamin D 25-Hydroxy 33.9 ng/mL [facility] Work Phone: Comment on above: Vitamin D 25(OH) Sta tus Range Deficiency <20 ng/mL (50nmol/L) Insufficiency 20 - 30 ng/mL (50 - 75 nmol/L) Sufficiency 30 - 100 ng/mL (75 - 250 nmol/L) Toxicity >100 ng/mL (>250 nmol/L) Platelets bldon 01-03-2022 Platelets (Bld) [#/Vol] 236 10*3/uL 150-450 [facility] Work Phone: Serum or plasma albumin baron urement (mass/volume)on 01-03-2022 Albumin [Mass/Vol] 3.7 g/dL 3.2-5.0 [facility] Work Phone: Serum or plasma albumin/glob ulin mass ratioon 01-03-2022 Albumin/Globulin [Mass ratio] 1.1 {ratio} 0.9-2.4 [facility] Work Phone: Serum or plasma calcium baron urement (mass/volume)on 01-03-2022 Calcium [Mass/Vol] 8.8 mg/dL 8.5-10.1 [facility] Work Phone: Serum or plasma cholesterol in HDL measurement (mass/volume)on 01-03-2022 Cholesterol in HDL [Mass/Vol] 68 mg/dL >40 [facility] Work Phone: Comment on above: The drugs N-Acetylcy steine and Metamizole may falsely depress this assay. Reference Range HDL <40 mg/dL Low HDL Cholesterol HDL >or= 60 mg/dL High HDL Cholesterol Serum or plasma cholesterol in VLDL measurement (mass/volume)on 01-03-2022 Cholesterol in VLDL [Mass/Vol] 9 mg/dL 5-40 [facility] Work Phone: Serum or plasma creatinine m easurement (mass/volume)on 01-03-2022 Creatinine [Mass/Vol] 0.64 mg/dL 0.55-1.02 [facility] Work Phone: Comment on above: The validity of the calculated GFR & GFRAA in patients over 70 years has not been determined. Clinical correlation is essential. Serum or plasma low density lipoprotein (LDL) cholesterol measurement (mass/volume)on 01-03-2022 Cholesterol in LDL [Mass/Vol] 88 mg/dL 0-130 [facility] Work Phone: Serum or plasma prolactin me asurement (mass/volume)on 01-03-2022 Prolactin [Mass/Vol] 7.3 ng/mL [facility] Work Phone: Comment on above: NORMAL REFERENCE RAN GES FEMALE NON- 2.2 - 30.3 ng/mL 8.1 - 347.6 ng/mL POST-MENOPAUSAL 0.7 - 31.5 ng/mL MALE 2.5 - 17.4 ng/mL Serum or plasma urea nitroge n measurement (mass/volume)on 01-03-2022 Urea nitrogen [Mass/Vol] 10 mg/dL 7-18 [facility] Work Phone: Thin prep Papanicolaou smear with manual screeningon 01-03-2022 Thin prep Papanicolaou smear with manual screening 13 U/L 15-37 [facility] Work Phone: Thin prep Papanicolaou smear with manual screening 4 5-15 [facility] Work Phone: Thin prep Papanicolaou smear with manual screening < 5.0 mg/L NO RANGE EST. [facility] Work Phone: Urine creatinine measurement (mass/volume)on 01-03-2022 Creatinine (U) [Mass/Vol] 28.70 mg/dL NO RANGE EST. [facility] Work Phone: Laboratory - Hematology and Cell countson 11-25-2021 HbA1c (Bld) [Mass fraction] 4.9 % 4.2-6.3 [facility] Work Phone: Vital Signs Date Time Vital Sign Value Performing Clinician Faci lity 01-23-2023 09:00-0500 Body height 170.[address] Chula Palacios Work Phone: [facility] 01-23-2023 08:54-0500 Body mass index (BMI) [Ratio] 25 kg/m2 Dr. Chula Palacios Work Phone: [facility] 01-23-2023 08:54-0500 Body weight 72.[address] Chula Palacios Work Phone: [facility] 12-02-2022 13:16-0400 Body mass index (BMI) [Ratio] 25.9 kg/m2 Dr. Chula Palacios Work Phone: [facility] 12-02-2022 13:16-0400 Body temperature 98.4 [degF] Dr. Chula Palacios Work Phone: [facility] 12-02-2022 13:16-0400 Body weight 75.[address] Chula Palacios Work Phone: [facility] 12-02-2022 13:16-0400 Diastolic blood pressure 62 mm[Hg] Dr. Chula Palacios Work Phone: [facility] 12-02-2022 13:16-0400 Heart rate 78 /min Dr. Chula Palacios Work Phone: [facility] 12-02-2022 13:16-0400 Respiratory rate 18 /min Dr. Chula Palacios Work Phone: [facility] 12-02-2022 13:16-0400 SaO2% (BldA) [Mass fraction] 98 % Dr. Chula Palacios Work Phone: [facility] 12-02-2022 13:16-0400 Systolic blood pressure 104 mm[Hg] Dr. Chula Palacios Work Phone: [facility] 01-08-2022 09:12-0400 Body height 170.[address] Chula Palacios Work Phone: [facility] Work Phone: 01-08-2022 09:12-0400 Body mass index (BMI) [Ratio] 23.9 kg/m2 Dr. Chula Palacios Work Phone: [facility] Work Phone: 01-08-2022 09:12-0400 Body temperature 98.3 [degF] Dr. Chula Palacios Work Phone: [facility] Work Phone: 01-08-2022 09:12-0400 Body weight 69.[address] Chula Palacios Work Phone: [facility] Work Phone: 01-08-2022 09:12-0400 Diastolic blood pressure 64 mm[Hg] Dr. Chula Palacios Work Phone: [facility] Work Phone: 01-08-2022 09:12-0400 Heart rate 103 /min Dr. Chula Palacios Work Phone: [facility] Work Phone: 01-08-2022 09:12-0400 Respiratory rate 14 /min Dr. Chula Palacios Work Phone: [facility] Work Phone: 01-08-2022 09:12-0400 SaO2% (BldA) [Mass fraction] 98 % Dr. Chula Palacios Work Phone: [facility] Work Phone: 01-08-2022 09:12-0400 Systolic blood pressure 116 mm[Hg] Dr. Chula Palacios Work Phone: [facility] Work Phone: 01-02-2022 13:22-0400 Body mass index (BMI) [Ratio] 23.8 kg/m2 Dr. Chula Palacios Work Phone: [facility] Work Phone: 01-02-2022 13:22-0400 Body weight 68.[address] Chula Palacios Work Phone: [facility] Work Phone: 01-02-2022 13:22-0400 Diastolic blood pressure 82 mm[Hg] Dr. Chula Palacios Work Phone: [facility] Work Phone: 01-02-2022 13:22-0400 Systolic blood pressure 122 mm[Hg] Dr. Chula Palacios Work Phone: [facility] Work Phone: 11-25-2021 13:30-0400 Body mass index (BMI) [Ratio] 24.4 kg/m2 Dr. Chula Palacios Work Phone: [facility] Work Phone: 11-25-2021 13:30-0400 Body temperature 96.7 [degF] Dr. Chula Palacios Work Phone: [facility] Work Phone: 11-25-2021 13:30-0400 Body weight 70.[address] Chula Palacios Work Phone: [facility] Work Phone: 11-25-2021 13:30-0400 Diastolic blood pressure 69 mm[Hg] Dr. Chula Palacios Work Phone: [facility] Work Phone: 11-25-2021 13:30-0400 Heart rate 90 /min Dr. Chula Palacios Work Phone: [facility] Work Phone: 11-25-2021 13:30-0400 Respiratory rate 18 /min Dr. Chula Palacios Work Phone: [facility] Work Phone: 11-25-2021 13:30-0400 SaO2% (BldA) [Mass fraction] 98 % Dr. Chula Palacios Work Phone: [facility] Work Phone: 11-25-2021 13:30-0400 Systolic blood pressure 106 mm[Hg] Dr. Chula Palacios Work Phone: [facility] Work Phone: Encounters Encounter Date Encounter Type Care Provider Facility Start: 06-15-2024 Encounter for gynecological examination (general) (routine) without abnormal findings Lidia Velez [facility] Start: 06-15-2024 End: 06-15-2024 ambulatory Chula Palacios Facility:[facility] Start: 04-29-2024 End: 04-29-[address] Chula Palacios MD Work Phone: [facility] Work Phone: Start: 04-29-2024 End: 04-29-[address] Chula Palacios MD -Laboratory, Specimen Work Phone: Start: 04-29-2024 End: 04-29-2024 ambulatory Chula Palacios Facility:[facility] Start: 12-11-2023 End: 12-11-2023 ambulatory [facility] Facility:[facility] [facility] Start: 01-23-2023 End: 01-23-[address] Chula Palacios Work Phone: [facility] Work Phone: Start: 01-23-2023 End: 01-23-[address] Chula Palacios Work Phone: [facility]-Laboratory, [facility] Start: 01-23-2023 End: 01-23-[address] Chula Palacios Work Phone: [facility] Work Phone: Start: 12-02-2022 End: 12-02-[address] Chula Palacios Work Phone: [facility] Work Phone: Start: 01-13-2022 End: 01-13-[address] Chula Palacios Work Phone: [facility] Work Phone: Start: 01-13-2022 End: 01-13-[address] Chula Palacios Work Phone: [facility]-Outpatient [facility] Start: 01-08-2022 End: 01-08-[address] Chula Palacios Work Phone: [facility] Start: 01-03-2022 End: 01-03-[address] Chula Palacios Work Phone: [facility] Work Phone: Start: 01-03-2022 End: 01-03-[address] Chula Palacios Work Phone: [facility]-Laboratory Start: 01-02-2022 End: 01-02-[address] Chula Palacios Work Phone: [facility] Start: 11-25-2021 End: 11-25-[address] Chula Palacios Work Phone: [facility] Procedures Date Procedure Procedure Detail Performing Clinician Start: 04-29-[address] Afia Palacios MD Work Phone: Start: 01-13-2022 Bilateral mammography Ramya Palacios Work Phone: Start: 01-13-[address] Chula Palacios Work Phone: Plan of Treatment Date Care Activity Detail Author Start: 01-23-2023 Liquid based cervica l cytology screening [facility] Start: 01-02-2022 Patient referral [facility] Work Phone: MG Breast - bilatera l Diagnostic [facility] Work Phone: MG Breast - bilatera l Diagnostic [facility] Path report.final Dx Spec [facility] Patient referral [facility] Work Phone: US Breast limited [facility] Work Phone: [facility] Immunizations Immunization Date Immunization Notes Care Provider Scarlet mayen 08-22-2019 tetanus toxoid, redu iglesia diphtheria toxoid, and acellular pertussis vaccine, adsorbed Dr. Chula Palacios Work Phone: [facility] Payers Date Payer Category Payer Self-pay [id number] 2016 Unknown [id number] Self-pay SELF PAY INSURANCE . [id number] Unknown [id number] Unknown [id number] Social History Date Type Detail Facility Start: 01-08-2022 End: 01-23-2023 Tobacco smoking status NHIS Unknown if ever smoked [facility] Start: 1990 Sex Assigned At Female [facility] Start: 01-23-2023 Tobacco smoking stat us IDIS Never smoked tobacco (finding) [facility] Start: 05-12-2024 Sex Female (finding) [facility] Medical Equipment Procedure Code Equipment Code Equipment Origin al Text Equipment Identifier Dates Pen Needle, Diab etic (Bd Ultra-Fine [place] Pen Needle) 32 gauge x 5/32 needle Start: 11-25-2021 Pen Needle, Diab etic (Bd [place] 2nd Gen Pen Needle) 32 gauge x 5/32 needle Start: 04-19-2019 End: 10-26-2019 Pen Needle, Diab etic (Bd Ultra-Fine [place] Pen Needle) 32 gauge x 5/32 needle Start: 02-04-2021 End: 11-25-2021 Pen Needle, Diab etic (Bd Ultra-Fine [place] Pen Needle) 32 gauge x 5/32 needle Start: 11-25-2021 Pen Needle, Diab etic (Bd [place] 2nd Gen Pen Needle) 32 gauge x 5/32 needle Start: 04-19-2019 End: 10-26-2019 Pen Needle, Diab etic (Bd Ultra-Fine [place] Pen Needle) 32 gauge x 5/32 needle Start: 02-04-2021 End: 11-25-2021 Pen Needle, Diab etic (Bd Ultra-Fine [place] Pen Needle) 32 gauge x 5/32 needle Start: 12-02-2022 Pen Needle, Diab etic (Bd [place] 2nd Gen Pen Needle) 32 gauge x 5/32 needle Start: 04-19-2019 End: 10-26-2019 Pen Needle, Diab etic (Bd Ultra-Fine [place] Pen Needle) 32 gauge x 5/32 needle Start: 11-25-2021 End: 12-02-2022 Pen Needle, Diab etic (Bd Ultra-Fine [place] Pen Needle) 32 gauge x 5/32 needle Start: 02-04-2021 End: 11-25-2021 Pen Needle, Diab etic (Bd [place] 2nd Gen Pen Needle) 32 gauge x 5/32 needle Start: 04-19-2019 End: 10-26-2019 Pen Needle, Diab etic (Bd Ultra-Fine [place] Pen Needle) 32 gauge x 5/32 needle Start: 11-25-2021 End: 12-02-2022 Pen Needle, Diab etic (Bd Ultra-Fine [place] Pen Needle) 32 gauge x 5/32 needle Start: 12-02-2022 End: 12-11-2023 Pen Needle, Diab etic (Bd Ultra-Fine [place] Pen Needle) 32 gauge x 5/32 needle Start: 02-04-2021 End: 11-25-2021 Evaluation note Note Date & Type Note Facility Evaluation note Diagnosis Onset Date Diabetes acute Diabetes acute Galactorrhea acute Encounter for routine gyneco logical examination noneactive Acute frontal sinusitis, unspecified acute Acute pharyngitis, unspecified acute [facility] Work Phone: Evaluation note Note Date & Type Note Facility Evaluation note Diagnosis Onset Date Diabetes mellitus type 1 chr onic Galactorrhea acute Periorbital dermatitis acute Encounter for routine gyneco logical examination noneactive [facility] Work Phone: Evaluation note Note Date & Type Note Facility Evaluation note No assessment information availa ble [facility] Work Phone: Reason for referral (narrative) Note Date & Type Note Facility Reason for referral (narrative) No reason for referral information available [facility] Work Phone: Chief Complaint and Reason for Visit Chief Complaint 6 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 CONCERN FOR STREP Reason for Visit Diabetes Diabetes Galactorrhea Encounter for routine gynecological examination Acute frontal sinusitis, unspecified Acute pharyngitis, unspecified Chief Complaint 6 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 CONCERN FOR STREP GALACTORRHEA Reason for Visit Diabetes Diabetes Galactorrhea Encounter for routine gynecological examination Acute frontal sinusitis, unspecified Acute pharyngitis, unspecified Chief Complaint 6 M FU Annual (INSURANCE MARKETING SPECIALIST) Reason for Visit Diabetes mellitus ty pe 1 Galactorrhea Periorbital dermatitis Encounter for routine gynecological examination Family History No Family History Records Found Relationship Condition Age at Onset Recorded Date/T riley grandmother Diabetes mellitus Unknown sister Type 1 diabetes mellitus Unknown Relationship Condition Age at Onset Recorded Date/T riley grandmother Diabetes mellitus Unknown Malignant neoplasm of lung Unknown Malignant neoplasm of ovary 69 sister Type 1 diabetes mellitus Unknown Advance Directives No Advanced Directives Records Found Advance Directive Response Recorded Date/ Time Living Will No January 28 11:15am Power of Jig Builder No January 28, 2021 11:15am Advance Directive Response Recorded Date/ Time Living Will No January 28 10:15am Power of Jig Builder No January 28, 2021 10:15am Summary Purpose Additional Source Comments Goals (unrecognized section and content) Goals may be documented in a n alternate sectionGoals may be documented in an alternate sectionGoals may be documented in an alternate sectionGoals may be documented in an alternate section Care Teams (unrecognized sec tion and content) Team Status: Active Member Role Status Dates No Primary Care Physician Family Provider Active No Primary Care Physician Primary Care Provider Active Team Status: Inactive Member Role Status Dates Dr. Chula Palacios MD Primary Care Provider, Referrin g Provider Active Dr. Jaime Sidhu MD Attending Provider Active Team Status: Inactive Member Role Status Dates Dr. Chula Palacios MD Referring Provider Active Dr. Kelsy Kaye MD Attending Provider Active Team Status: Inactive Member Role Status Dates No Primary Care Physician Primary Care Provider Active Dr. Kelsy Kaye MD Attending Provider, Referr ing Provider Active Dr. Jaime Sidhu MD Other Provider Active Team Status: Active Member Role Status Dates No Primary Care Physician Family Provider Active Dr. Chula Palacios MD Primary Care Provider Active Team Status: Inactive Member Role Status Dates Dr. Chula Palacios MD Primary Care Provider Active Start: April 29, 2024 End: April 29, 2024 Dr. Chula Palacios MD Attending Provider Active Start: April 29, 2024 End: April 29, 2024 INFORMATION SOURCE (unrecogn ized section and content) DATE CREATED AUTHOR 06/17/2024 [facility] FOR RECORDS PERTAINING TO PATIENTS WHO ARE OR HAVE BEEN ENROLLED IN A CHEMICAL DEPENDENCY/SUBSTANCEABUSE PROGRAM, SOME INFORMATION MAY BE OMITTED. This clinical summary was aggregated from multiple sources. Caution should be exercised in using it in the provision of clinical care. This summary normalizes information from multiple sources, and as a consequence, information in this document may materially change the coding, format and clinical context of patient data. In addition, data may be omitted in some cases. CLINICAL DECISIONS SHOULD BE BASED ON THE PRIMARY CLINICAL RECORDS. [employer] provides no warranty or guarantee of the accuracy or completeness of information in this document.
== END | disposition home or self-care (01) ==
LOC: PAVLAB 09:13
PROVIDERS: PCP Family Medicine; Referring Provider Internal Medicine Endocrinology, Diabetes & Metabolism; Visit Provider Internal Medicine Endocrinology, Diabetes & Metabolism
DX: E10.9 Type 1 diabetes mellitus without complications (principal); E03.9 Hypothyroidism, unspecified
CPT/HCPCS: 36415; 80053; 80061; 82043; 82306; 82570; 83036; 84443